=== PATIENT | female | born 1985 | race Caucasian/White ===

== ENCOUNTER 2016-12-17 00:31 | Inpatient (IN) | payer MEDICAID, OTHER ==
[~2016-12-17] VITALS: Ht 154.9 cm; Wt 83.0 kg
[2016-12-17] VITALS (13 sets, daily range): BP systolic 102–130; BP diastolic 73–90; PULSE 83–105; RESP 12–13; TEMP 97.6–99.5; O2SAT 100
[~2016-12-17 00:31] MED LIST: ACYC1CAP16 PO; IBUP800T23 PO; LORTA5 PO; PRENTAB72 PO; SENN1TAB11 PO; SYNT200T OR
[2016-12-17] MEDS ORDERED: ceFAZolin 2 GM PREMIX 50 ML ONE ×2 (00:34→02:29)
[2016-12-17] MEDS ORDERED: MIDAZOLAM HCL 5 MG/ML VIAL (1 ML) ONE ×2 (00:51→01:03)
[2016-12-17] MEDS ORDERED: MANNITOL INJ 50 ML ONE ×3 (00:54→02:42)
[2016-12-17 01:03] LABS: I-STAT POTASSIUM 3.5 MMOL/L (3.5-4.9)
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
[2016-12-17] MEDS ORDERED: IOHEXOL 350 MG/ML 10 ML VIAL (for RAD DIAG) IV ONE (01:21)
[2016-12-17] MEDS ORDERED: PROPOFOL 1000 MG/100 ML INJ 100 ML ONE ×2 (01:28→05:59)
[2016-12-17] MEDS ORDERED: fentaNYL DRIP 250 ML ONE (01:29)
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
[2016-12-17] MEDS ORDERED: Post-op Orders (for Pharmacy) MISC XX ONE (01:45)
[2016-12-17] MEDS ORDERED: NALOXONE HCL 0.4 MG/ML AMP IV PRN (01:45)
[2016-12-17] MEDS ORDERED: SODIUM CHLORIDE 0.9% FLUSH 10 ML FLUSH IV FLUSH PRN (01:45)
[2016-12-17 01:53] LABS: AUTOMATED NEUTROPHIL # 18.7 TH/MM3 (1.8-7.7); BASOPHIL # 0.2 TH/MM3 (0-0.2); EOSINOPHIL % 0.1 % (0.0-4.0); HEMATOCRIT 37.3 % (35.0-46.0); HEMO FLAGS DIFF FINAL; LYMPH % 3.8 % (9.0-44.0); LYMPHOCYTE # 0.8 TH/MM3 (1.0-4.8); MEAN CORPUSCULAR HEMOGLOBIN 27.2 PG (27.0-34.0); MEAN CORPUSCULAR HGB CONC 32.3 % (32.0-36.0); MONO % 2.7 % (0.0-8.0); NEUT % 92.4 % (16.0-70.0); PLATELET COUNT 130 TH/MM3 (150-450); RED BLOOD COUNT 4.44 MIL/MM3 (4.00-5.30); RED CELL DISTRIBUTION WIDTH 16.1 % (11.6-17.2); WHITE BLOOD COUNT 20.2 TH/MM3 (4.0-11.0)
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
[2016-12-17] MEDS: PANTOPRAZOLE SODIUM 40 MG VIAL IV SCH (02:00)
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
[2016-12-17 02:05] LABS: APTT (PATIENT) 30.5 SEC (24.3-30.1); INTERNATIONAL NORMALIZED RATIO 1.4 RATIO; PROTHROMBIN TIME - PATIENT 15.2 SEC (9.8-11.6)
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
[2016-12-17] MEDS ORDERED: HEPARIN SODIUM - IV 10,000 UNITS/10 ML VIAL ONE (02:29)
[2016-12-17] MEDS: GENTAMICIN SULFATE 80 MG/2 ML VIAL ONE (02:42)
[2016-12-17 03:27] LABS: HEMATOCRIT 42.1 % (35.0-46.0); MEAN CELL VOLUME 82.6 FL (80.0-100.0); MEAN CORPUSCULAR HEMOGLOBIN 27.4 PG (27.0-34.0); MEAN CORPUSCULAR HGB CONC 33.1 % (32.0-36.0); PLATELET COUNT 132 TH/MM3 (150-450); RED CELL DISTRIBUTION WIDTH 16.2 % (11.6-17.2); REVIEW FLAG FINAL; WHITE BLOOD COUNT 17.7 TH/MM3 (4.0-11.0)
[2016-12-17 03:33] LABS: BLOOD GAS BASE EXCESS -0.3 mmol/L (-2-2); BLOOD GAS CARBOXYHEMOGLOBIN 1.4 % (0-4); BLOOD GAS HCO3 25 mmol/L (22-26); BLOOD GAS METHEMOGLOBIN 1.2 % (0-2); BLOOD GAS O2 HGB SATURATION 73 % (90-100); BLOOD GAS OXYGEN CONTENT 15.4 Vol % (12.0-20.0); BLOOD GAS PCO2 48 mmHg (38-42); BLOOD GAS PO2 42 mmHg (61-120); TEMP CORR TO 98.6
[2016-12-17 03:36] LABS: CRITICAL VALUE YES; FIO2 100 %; STAT NO
[2016-12-17 03:38] LABS: APTT (PATIENT) 24.5 SEC (24.3-30.1); INTERNATIONAL NORMALIZED RATIO 1.1 RATIO
[2016-12-17 03:52] LABS: BICARBONATE 26.4 MEQ/L (21.0-32.0); POTASSIUM 3.3 MEQ/L (3.5-5.1)
[2016-12-17 04:14] LABS: CALCIUM-PROTEIN CORRECTED 7.9 MG/DL (8.5-10.1)
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
--- NOTE | 2016-12-17 05:22 | PD.OP ---
Operative Report Preoperative Diagnosis: (1) Open fracture of shaft of right humerus (2) Strain of triceps tendon Postoperative Diagnosis: (1) Open fracture of shaft of right humerus (2) Strain of triceps tendon Procedure: Right humerus open reduction and internal fixation Right humerus irrigation and debridement Exploration of ruptured radial nerve Repair triceps open rupture Placement of wound VAC Anesthesia: General Surgeon: Poli Quiñones MD Crankshaft Straightener(s): staff and Dr. Garza Operation and Findings: see dictation Poli Quiñones MD Dec 17, 2016 05:22
--- NOTE | 2016-12-17 05:48 | RADRPT ---
EXAM DATE/TIME: 12/17/2016 04:22 [facility] COMPARISON: No previous studies available for comparison. INDICATIONS : ORIF right distal humerus. MEDICAL HISTORY : Non-responsive SURGICAL HISTORY : Non-responsive ENCOUNTER: Subsequent ACUITY: 1 day PAIN SCORE: Non-responsive. LOCATION: Right distal humerus FINDINGS: Two view examination of the right humerus demonstrates placement of a fixation plate across a fractur e. Large soft tissue defect posteriorly remains. CONCLUSION: Status post fracture fixation with large remaining soft tissue defect. Lewis Saldana MD on December 17, 2016 at 5:46 Board Certified Radiologist. This report was verified electronically.
[2016-12-17] MEDS ORDERED: DO NOT ADM ANY ANTICOAGULANT DRUGS PRN (05:49)
[2016-12-17] MEDS: SODIUM CHLOR 0.9% 1000 ML INJ 1,000 ML IV SCH ×2 (06:00→20:46)
[2016-12-17] MEDS ORDERED: ceFAZolin 2 GM PREMIX 50 ML IV SCH (06:00)
[2016-12-17] MEDS ORDERED: fentaNYL CITRATE 250 MCG/5 ML AMP ONE (06:05)
[2016-12-17 06:29] LABS: BLOOD GAS BASE EXCESS -2.2 mmol/L (-2-2); BLOOD GAS CARBOXYHEMOGLOBIN 1.2 % (0-4); BLOOD GAS HCO3 22 mmol/L (22-26); BLOOD GAS O2 HGB SATURATION 97 % (90-100); BLOOD GAS OXYGEN CONTENT 18.2 Vol % (12.0-20.0); BLOOD GAS PCO2 39 mmHg (38-42); BLOOD GAS PO2 187 mmHg (61-120); BLOOD GAS TOTAL HGB 13.1 G/DL (12.0-16.0); CRITICAL VALUE NO; OXYGEN DEVICE VENTILATOR; TEMP CORR TO 98.6
[2016-12-17 06:30] LABS: DRAW SITE LT RADIAL; FIO2 50 %; NUMBER OF ARTERIAL PUNCTURES 1; STAT NO; ULNAR PULSE PRESENT
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
[2016-12-17] MEDS ORDERED: LEVO.1 PO (07:27)
[2016-12-17] MEDS ORDERED: POTASSIUM PHOSPHATE MONOBASIC 500 MG TAB PO PRN (07:45)
[2016-12-17] MEDS ORDERED: MAGNESIUM SULFATE INJ 2 GM in SODIUM CHLORIDE 0.9% INJ 96 ML IV PRN (07:45)
[2016-12-17] MEDS ORDERED: POTASSIUM CHLORIDE 25 MEQ EFFERVESCENT TAB PO PRN (07:45)
[2016-12-17] MEDS ORDERED: POTASSIUM PHOSPHATE INJ 30 MMOL in SODIUM CHLOR 0.9% 250 ML INJ 250 ML IV PRN (07:45)
[2016-12-17] MEDS ORDERED: POTASSIUM CHLOR 20 MEQ PREMIX 100 ML IV PRN ×2 (07:45)
[2016-12-17] MEDS ORDERED: SODIUM PHOSPHATE INJ 30 MMOL in SODIUM CHLOR 0.9% 250 ML INJ 240 ML IV PRN (07:45)
[2016-12-17] MEDS ORDERED: POTASSIUM PHOSPHATE MONOBASIC 500 MG TAB PO/TUBE PRN (07:45)
[2016-12-17] MEDS ORDERED: MAGNESIUM OXIDE 400 MG TAB PO PRN (07:45)
[2016-12-17] MEDS ORDERED: BISACODYL 10 MG SUPP RECTAL PRN (07:45)
[2016-12-17] MEDS ORDERED: MAGNESIUM SULFATE INJ 4 GM in SODIUM CHLORIDE 0.9% INJ 92 ML IV PRN (07:45)
[2016-12-17] MEDS ORDERED: POTASSIUM CHLOR 40 MEQ PREMIX 100 ML IV PRN (07:45)
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
[2016-12-17] MEDS: CLINDAMYCIN INJ 600 MG in SODIUM CHLORIDE 0.9% INJ 50 ML IV SCH ×2 (07:58→16:16)
[2016-12-17] MEDS: CHLORHEXIDINE 0.12% (ORAL KIT) 15 ML CUP MT SCH ×2 (08:00→20:00)
[2016-12-17] MEDS: fentaNYL 2,500 MCG/NS 250 ML IV SCH ×2 (08:15→16:16)
--- NOTE | 2016-12-17 08:15 | RADRPT ---
EXAM DATE/TIME: 12/17/2016 07:44 [facility] COMPARISON: CHEST SINGLE AP, December 17, 2016, 0:43. INDICATIONS : Trauma MEDICAL HISTORY : Unknown SURGICAL HISTORY : Unknown ENCOUNTER: Subsequent ACUITY: 1 day PAIN SCORE: Non-responsive. LOCATION: Bilateral chest FINDINGS: Endotracheal tube is noted and the tip terminates 1.2 cm above the jennifer. NG tube courses beneath th e diaphragm. The lungs are clear. Osseous structures are intact. Left subclavian introducer sheath ag ain seen. CONCLUSION: Clear lungs. Gigi Read MD on December 17, 2016 at 8:09 Board Certified Radiologist. This report was verified electronically.
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
[2016-12-17 08:51] LABS: MAGNESIUM 2.1 MG/DL (1.5-2.5)
[2016-12-17] MEDS: SODIUM CHLORIDE 0.9% FLUSH 10 ML FLUSH IV FLUSH SCH ×2 (09:00→20:47)
[2016-12-17] MEDS: DOCUSATE SODIUM 50 MG/SENNA 8.6 MG TAB PO SCH ×2 (09:00→20:47)
[2016-12-17] MEDS ORDERED: SODIUM CHLOR 0.9% 250 ML INJ 250 ML IV ONE (09:45)
[2016-12-17] MEDS ORDERED: SODIUM CHLOR 0.9% 1000 ML INJ 1,000 ML IV ONE (09:45)
[2016-12-17] MEDS: RESP: ALBUTEROL 2.5 MG/IPRATROPIUM 0.5 MG NEB (SCH) NEB ×3 (10:52→20:03)
[2016-12-17] MEDS: POTASSIUM CHLOR 40 MEQ PREMIX 100 ML IV PRN (11:38)
[2016-12-17] MEDS ORDERED: LACTATED RINGER'S 1000 ML INJ 3,000 ML IV ONE (12:00)
[2016-12-17] MEDS ORDERED: NORMOSOL R INJ 2,000 ML IV ONE (12:00)
[2016-12-17] MEDS: GENTAMICIN INJ 100 MG in SODIUM CHLORIDE 0.9% INJ 100 ML IV SCH ×2 (12:10→18:48)
[2016-12-17] MEDS: ceFAZolin 2 GM PREMIX 50 ML IV SCH ×2 (12:10→18:46)
[2016-12-17] MEDS: PROPOFOL 1000 MG/100 ML INJ 100 ML IV SCH ×3 (12:30→20:46)
[2016-12-17] MEDS: LACTULOSE SYRUP 20 GM/30 ML CUP PO SCH (16:42)
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
[2016-12-18] VITALS (18 sets, daily range): BP systolic 91–103; BP diastolic 47–58; PULSE 57–85; RESP 12–16; TEMP 94.1–99.5; O2SAT 100
[2016-12-18] MEDS: PANTOPRAZOLE SODIUM 40 MG VIAL IV SCH (00:06)
[2016-12-18] MEDS: CLINDAMYCIN INJ 600 MG in SODIUM CHLORIDE 0.9% INJ 50 ML IV SCH (00:06)
[2016-12-18] MEDS: PROPOFOL 1000 MG/100 ML INJ 100 ML IV SCH ×4 (01:26→17:43)
[2016-12-18] MEDS: GENTAMICIN INJ 100 MG in SODIUM CHLORIDE 0.9% INJ 100 ML IV SCH ×3 (01:58→17:43)
[2016-12-18] MEDS: ceFAZolin 2 GM PREMIX 50 ML IV SCH ×4 (01:59→17:43)
[2016-12-18] MEDS ORDERED: LACTATED RINGER'S 1000 ML INJ 1,000 ML IV ONE ×2 (02:00→16:00)
[2016-12-18] MEDS: RESP: ALBUTEROL 2.5 MG/IPRATROPIUM 0.5 MG NEB (SCH) NEB ×5 (03:33→20:10)
[2016-12-18] MEDS: fentaNYL 2,500 MCG/NS 250 ML IV SCH ×2 (03:51→17:43)
[2016-12-18 04:56] LABS: AUTOMATED NEUTROPHIL # 9.8 TH/MM3 (1.8-7.7); BASOPHIL # 0.1 TH/MM3 (0-0.2); BASOPHIL % 0.4 % (0.0-2.0); EOSINOPHIL # 0.1 TH/MM3 (0-0.4); EOSINOPHIL % 0.6 % (0.0-4.0); HEMATOCRIT 29.2 % (35.0-46.0); HEMO FLAGS DIFF FINAL; LYMPH % 12.8 % (9.0-44.0); LYMPHOCYTE # 1.6 TH/MM3 (1.0-4.8); MEAN CELL VOLUME 83.3 FL (80.0-100.0); MEAN CORPUSCULAR HGB CONC 33.6 % (32.0-36.0); MONO % 5.6 % (0.0-8.0); NEUT % 80.6 % (16.0-70.0); PLATELET COUNT 102 TH/MM3 (150-450); RED BLOOD COUNT 3.51 MIL/MM3 (4.00-5.30); RED CELL DISTRIBUTION WIDTH 16.9 % (11.6-17.2); WHITE BLOOD COUNT 12.1 TH/MM3 (4.0-11.0)
[2016-12-18 05:29] LABS: BLOOD GAS BASE EXCESS -2.1 mmol/L (-2-2); BLOOD GAS CARBOXYHEMOGLOBIN 0.9 % (0-4); BLOOD GAS HCO3 23 mmol/L (22-26); BLOOD GAS METHEMOGLOBIN 1.1 % (0-2); BLOOD GAS O2 HGB SATURATION 97 % (90-100); BLOOD GAS OXYGEN CONTENT 13.1 Vol % (12.0-20.0); BLOOD GAS PCO2 47 mmHg (38-42); BLOOD GAS PO2 169 mmHg (61-120); BLOOD GAS TOTAL HGB 9.3 G/DL (12.0-16.0); CRITICAL VALUE NO; OXYGEN DEVICE VENT; TEMP CORR TO 98.6
[2016-12-18 05:30] LABS: DRAW SITE LT BRACHIAL; FIO2 40 %; NUMBER OF ARTERIAL PUNCTURES 1; STAT NO; ULNAR PULSE PRESENT; VENT SETTINGS SEE COMMENTS
[2016-12-18 06:30] LABS: BICARBONATE 22.2 MEQ/L (21.0-32.0); POTASSIUM 4.5 MEQ/L (3.5-5.1); TOTAL BILIRUBIN ADULT 0.4 MG/DL (0.2-1.0)
[2016-12-18] MEDS: SODIUM CHLOR 0.9% 1000 ML INJ 1,000 ML IV SCH ×2 (06:30→17:44)
[2016-12-18 06:32] LABS: CALCIUM-PROTEIN CORRECTED 7.4 MG/DL (8.5-10.1)
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
[2016-12-18] MEDS: DOCUSATE SODIUM 50 MG/SENNA 8.6 MG TAB PO SCH ×2 (08:08→21:31)
[2016-12-18] MEDS: LACTULOSE SYRUP 20 GM/30 ML CUP PO SCH (08:08)
[2016-12-18] MEDS: SODIUM CHLORIDE 0.9% FLUSH 10 ML FLUSH IV FLUSH SCH ×2 (08:08→21:31)
[2016-12-18] MEDS: CHLORHEXIDINE 0.12% (ORAL KIT) 15 ML CUP MT SCH ×2 (08:30→21:31)
[2016-12-18] MEDS ORDERED: VANCOMYCIN HCL 1000 MG VIAL ONE (08:34)
[2016-12-18] MEDS: GENTAMICIN SULFATE 80 MG/2 ML VIAL ONE ×3 (08:34→10:11)
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
[2016-12-18] MEDS ORDERED: CALCIUM GLUCONATE INJ 2 GM in SODIUM CHLORIDE 0.9% INJ 100 ML IV ONE (09:00)
[2016-12-18] MEDS ORDERED: BUPIVACAINE/EPINEPHRINE 0.5% PF 10 ML VIAL ONE (09:01)
[2016-12-18] MEDS ORDERED: GENTAMICIN SULFATE 80 MG/2 ML VIAL ONE (09:24)
[2016-12-18] MEDS ORDERED: PROPOFOL 500 MG/50 ML INJ 50 ML ONE ×2 (10:29→12:16)
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
[2016-12-18] MEDS ORDERED: Post-op Orders (for Pharmacy) MISC XX ONE (12:00)
--- NOTE | 2016-12-18 12:01 | PD.OP ---
cc: Clay Mandujano MD Operative Report Date of Surgery: Dec 18, 2016 Preoperative Diagnosis: Displaced right radius and ulna shaft fractures, displaced left distal tibia fracture with syndesmosis disruption, left foot lacerations Postoperative Diagnosis: Procedure: Open reduction internal fixation right radius and ulna shaft fractures, open reduction internal fixation left distal tibia, open reduction total fixation left ankle syndesmosis, irrigation and debridement with complex wound closure left foot 20 cm in length Surgeon: Clay Mandujano Market Research Assistant(s): DIONICIO Correa PA-C The surgical procedure was assisted by my physician diversional therapist's assistant. My P.A. presence was necessary throughout this case for the manipulation and positioning of the surgical extremity. My P.A. was assisting me throughout the duration of this procedure. The skill set of a physician diversional therapist's assistant was medically necessary to complete this procedure. During the surgical case the surgical services asst was working at the back table and the physician diversional therapist's assistant was directly assisting me. Operation and Findings: Patient was seen and examined preoperatively. Patient was found to have displaced right radius and ulna shaft fractures and left distal tibia fracture. She also had open right humerus fracture previously treated by Dr. Quiñones with open reduction internal fixation. Preoperatively patient was intubated and sedated intensive care unit. Informed consent was obtained from patient's mother and operative site was marked. Patient was brought to operating room and given IV sedation and general anesthesia. Timeout procedure was performed. The right arm and left leg were prepped and draped with alcohol followed by Hibiclens and draped in usual sterile fashion. IV antibiotics were administered prior to incision. Procedure began with a 5 inch incision over the subcutaneous border of the ulna. Fascia was elevated off of the bone. Fracture site was visualized. Fracture tenaculums were used to reduce fracture. Fracture keyed into anatomic alignment. 2 Synthes 2.7 cortical lag screws were used to compress fracture. Good compression was obtained. A Synthes plate was placed across the fracture. Plate was provisionally held to bone with K wires. 3.5 cortical screws were used to compress plate to bone. Multiple screws were placed in each side of fracture. K wires were removed. Fluoroscopy confirmed excellent alignment of fracture with well-placed hardware. Incision was now closed with # 1 Vicryl, 3-0 Vicryl, and ashleigh. Next attention was turned to the radius. A 5 inch incision was made over the volar aspect of the forearm. A standard volar approach was utilized. The interval between the radial artery and superficial radial nerve was identified. Neurovascular structures were protected. Soft tissue was elevated off the bone. Fracture site was visualized. Fracture fragments were carefully reduced. Each fracture fragment keyed in anatomic alignment. K wires were used to hold provisional fixation. A Synthes plate was contoured to fit the radius. Plate was provisionally held with K wires. 3.5 cortical screws were used to compress plate to bone. Multiple screws were placed in each side of fracture. K wires were removed. Final fluoroscopy revealed excellent of fracture with well-placed hardware. Sterile dressings were applied with Xeroform 4 x 4 soft roll and Pierre wrap. Forearm compartments were soft and compressible. Attention was turned towards the distal tibia. A 6-inch incision was made over the anterior lateral ankle. The subcutaneous tissue was dissected with Bovie. The anterior aspect of the fibula and tibia were exposed. The fracture site was visualized. The fracture site was cleaned with curets. There was some comminution around the articular surface. The fractures were now reduced. The fractures keyed into anatomic alignment. K-wires were used to hold provisional fixation. A Synthes 2.4 plate was selected. The plate was provisionally held to bone with K-wires. 2.4 cortical screws were used to compress the plate to bone. Multiple cortical screws were placed above and below the fracture. An additional Arthrex bioabsorbable 1.5 mm pin was placed through the articular surface fragments for additional stability. Next, attention was turned to the syndesmosis. The syndesmosis was stressed. There was widening of the syndesmosis with external rotation of the ankle. The syndesmosis was now held in a reduced position with the ankle in neutral position. Two Synthes 4.0 cortical screws were now placed through the fibula plate into the tibia. Fluoroscopy confirmed appropriate screw placement with well-aligned syndesmosis. Incisions were thoroughly irrigated. The subcutaneous tissue was closed with 3-0 PDS and the skin was closed with 3-0 nylon. Next attention was turned to the left foot. There were 2 traumatic lacerations. One laceration extended into the webspace between the fourth and fifth toes. The laceration extended around the medial heel pads. These lacerations were thoroughly irrigated. Skin subcutaneous tissue and fascia were sharply debrided. Overall the wound relatively clean. Next attention was turned to closure. These lacerations were complex and difficult to close. Subcutaneous tissues reapproximated with 3-0 PDS. Skin was closed with 3-0 nylon. A comminution retention suture and vertical mattress suture were utilized. The incisions were completely closed. Sterile dressings were applied and a well-padded short-leg splint was applied. Patient was transferred back to intensive care intubated. Clay Mandujano MD Dec 18, 2016 12:01
[2016-12-18] MEDS ORDERED: BACITRACIN TOP OINT 15 GM TUBE ONE (12:26)
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
--- NOTE | 2016-12-18 13:17 | RADRPT ---
EXAM DATE/TIME: 12/18/2016 10:51 [facility] COMPARISON: FOREARM RIGHT (2VWS), December 17, 2016, 1:40. INDICATIONS : ORIF right forearm. MEDICAL HISTORY : None. SURGICAL HISTORY : None. ENCOUNTER: Subsequent ACUITY: 2 days PAIN SCORE: Non-responsive. LOCATION: Right forearm. FINDINGS: Plate with screws is seen bridging the fracture of the distal radius and ulna. Alignment is anatomic . CONCLUSION: Anatomic alignment. Doug Snyder MD FACR on December 18, 2016 at 13:11 Board Certified Radiologist. This report was verified electronically.
--- NOTE | 2016-12-18 13:20 | RADRPT ---
EXAM DATE/TIME: 12/18/2016 10:51 [facility] COMPARISON: No previous studies available for comparison. INDICATIONS : ORIF left ankle. MEDICAL HISTORY : None. SURGICAL HISTORY : None. ENCOUNTER: Subsequent ACUITY: 2 days PAIN SCORE: Non-responsive. LOCATION: Left ankle. FINDINGS: Plate with screws is seen bridging the fracture of the distal tibia and fibula about the ankle. Alig nment is anatomic. CONCLUSION: Anatomic alignment. Doug Snyder MD FACR on December 18, 2016 at 13:11 Board Certified Radiologist. This report was verified electronically.
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
--- NOTE | 2016-12-18 15:06 | PD.OP ---
Operative Report open wound left shoulder Postoperative Diagnosis: same Procedure: Debridement open wound left shoulder Anesthesia: fentanyl/propofol Surgeon: Hansa Bhardwaj Tooth Cutter Clutch(s): none Operation and Findings: Left shoulder open wound 6x6cm in size.Washout with NS performed.Devitalized tissue circumferentially sharply debrided.Wound VAC applied to 100mmHg pressure.Procedure performed at the bedside in the ICU. Hansa Bhardwaj MD Dec 18, 2016 15:06
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
[2016-12-18 15:39] LABS: AUTOMATED NEUTROPHIL # 6.5 TH/MM3 (1.8-7.7); BASOPHIL % 0.4 % (0.0-2.0); EOSINOPHIL % 0.6 % (0.0-4.0); HEMATOCRIT 22.6 % (35.0-46.0); LYMPH % 12.6 % (9.0-44.0); MEAN CELL VOLUME 83.5 FL (80.0-100.0); MEAN CORPUSCULAR HEMOGLOBIN 28.5 PG (27.0-34.0); MEAN CORPUSCULAR HGB CONC 34.1 % (32.0-36.0); MONO % 4.3 % (0.0-8.0); NEUT % 82.1 % (16.0-70.0); PLATELET COUNT 90 TH/MM3 (150-450); RED BLOOD COUNT 2.71 MIL/MM3 (4.00-5.30); RED CELL DISTRIBUTION WIDTH 16.6 % (11.6-17.2)
[2016-12-18 15:58] LABS: HEMO FLAGS AUTO DIFF
[2016-12-18 16:15] LABS: BICARBONATE 26.4 MEQ/L (21.0-32.0); POTASSIUM 4.2 MEQ/L (3.5-5.1)
[2016-12-18 16:46] LABS: BANDS 18 % (0-6); METAMYELOCYTES 2 % (0-1); NEUTROPHIL # MANUAL DIFF 7.5 TH/MM3 (1.8-7.7); POLYS (SEG NEUTROPHILS) 74 % (16-70); WBC DIFF SAMPLE 100
[2016-12-18 16:48] LABS: OVALOCYTES 1+ (NORMAL); PLATELET ESTIMATE SMEAR LOW (NORMAL); PLATELET MORPHOLOGY NORMAL (NORMAL); SCAN/DIFF FINAL DIFF MANUAL
[2016-12-18] MEDS: POVIDONE IODINE 10% OINT 30 GM TUBE TOPICAL SCH (21:00)
[2016-12-18] MEDS: BACITRACIN TOP OINT 15 GM TUBE TOPICAL SCH ×2 (21:00→21:32)
[2016-12-18] MEDS: ENOXAPARIN SODIUM 30 MG/0.3 ML SYRINGE SQ SCH (21:31)
[2016-12-19] VITALS (18 sets, daily range): BP systolic 96–130; BP diastolic 60–77; PULSE 65–109; RESP 10–17; TEMP 99.3–100; O2SAT 100
[2016-12-19] MEDS: ceFAZolin 2 GM PREMIX 50 ML IV SCH ×3 (01:42→18:14)
[2016-12-19] MEDS: PROPOFOL 1000 MG/100 ML INJ 100 ML IV SCH ×2 (01:45→09:41)
[2016-12-19] MEDS: PANTOPRAZOLE SODIUM 40 MG VIAL IV SCH (01:45)
[2016-12-19] MEDS: GENTAMICIN INJ 100 MG in SODIUM CHLORIDE 0.9% INJ 100 ML IV SCH ×3 (03:19→18:14)
[2016-12-19] MEDS: SODIUM CHLOR 0.9% 1000 ML INJ 1,000 ML IV SCH ×3 (03:19→22:37)
[2016-12-19] MEDS: RESP: ALBUTEROL 2.5 MG/IPRATROPIUM 0.5 MG NEB (SCH) NEB ×4 (03:34→21:14)
[2016-12-19 03:42] LABS: AUTOMATED NEUTROPHIL # 9.8 TH/MM3 (1.8-7.7); BASOPHIL # 0.1 TH/MM3 (0-0.2); BASOPHIL % 0.7 % (0.0-2.0); EOSINOPHIL # 0.2 TH/MM3 (0-0.4); EOSINOPHIL % 1.4 % (0.0-4.0); HEMATOCRIT 27.4 % (35.0-46.0); HEMO FLAGS DIFF FINAL; LYMPH % 8.6 % (9.0-44.0); MEAN CELL VOLUME 82.2 FL (80.0-100.0); MEAN CORPUSCULAR HEMOGLOBIN 28.1 PG (27.0-34.0); MEAN CORPUSCULAR HGB CONC 34.1 % (32.0-36.0); MONO % 2.9 % (0.0-8.0); NEUT % 86.4 % (16.0-70.0); PLATELET COUNT 113 TH/MM3 (150-450); RED BLOOD COUNT 3.33 MIL/MM3 (4.00-5.30); RED CELL DISTRIBUTION WIDTH 15.6 % (11.6-17.2); WHITE BLOOD COUNT 11.4 TH/MM3 (4.0-11.0)
[2016-12-19 04:30] LABS: BICARBONATE 25.8 MEQ/L (21.0-32.0); CALCIUM-PROTEIN CORRECTED 8.3 MG/DL (8.5-10.1); POTASSIUM 3.3 MEQ/L (3.5-5.1); TOTAL BILIRUBIN ADULT 0.5 MG/DL (0.2-1.0)
[2016-12-19] MEDS: POTASSIUM CHLOR 40 MEQ PREMIX 100 ML IV PRN (04:51)
[2016-12-19 05:45] LABS: BLOOD GAS BASE EXCESS -0.6 mmol/L (-2-2); BLOOD GAS HCO3 24 mmol/L (22-26); BLOOD GAS O2 HGB SATURATION 98 % (90-100); BLOOD GAS OXYGEN CONTENT 18.2 Vol % (12.0-20.0); BLOOD GAS PCO2 39 mmHg (38-42); BLOOD GAS PO2 201 mmHg (61-120); TEMP CORR TO 98.6
[2016-12-19 05:46] LABS: CRITICAL VALUE NO; OXYGEN DEVICE VENT; VENT SETTINGS SEE COMMENTS
[2016-12-19 05:47] LABS: DRAW SITE ART LINE; FIO2 40 %; STAT NO; ULNAR PULSE PRESENT
[2016-12-19] MEDS: BACITRACIN TOP OINT 15 GM TUBE TOPICAL SCH ×4 (09:00→21:00)
[2016-12-19] MEDS: POVIDONE IODINE 10% OINT 30 GM TUBE TOPICAL SCH ×2 (09:00→19:56)
[2016-12-19] MEDS: fentaNYL 2,500 MCG/NS 250 ML IV SCH (09:41)
[2016-12-19] MEDS: ENOXAPARIN SODIUM 30 MG/0.3 ML SYRINGE SQ SCH ×2 (09:41→21:00)
[2016-12-19] MEDS: LACTULOSE SYRUP 20 GM/30 ML CUP PO SCH (09:41)
[2016-12-19] MEDS: DOCUSATE SODIUM 50 MG/SENNA 8.6 MG TAB PO SCH ×2 (10:01→21:00)
[2016-12-19] MEDS: SODIUM CHLORIDE 0.9% FLUSH 10 ML FLUSH IV FLUSH SCH ×2 (10:01→21:00)
[2016-12-19] MEDS: CHLORHEXIDINE 0.12% (ORAL KIT) 15 ML CUP MT SCH ×2 (10:01→19:55)
[2016-12-19] MEDS: KETOROLAC TROMETHAMINE 30 MG/ML (IVP) VIAL IV PUSH SCH ×2 (11:56→18:14)
[2016-12-19] MEDS ORDERED: ENOXAPARIN SODIUM 40 MG/0.4 ML SYRINGE SQ SCH (12:00)
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
[2016-12-19] MEDS: MORPHINE SULFATE 4 MG/ML INJ IV PUSH PRN ×2 (15:40→22:37)
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
--- NOTE | 2016-12-19 23:47 | PD.ORT.PN ---
Subjective Subjective Remarks Patient extubated. Alert and oriented. Follows commands. Mother at bedside. Objective Vitals Vital Signs Date Time Temp Pulse Resp B/P Pulse Ox O2 Delivery O2 Flow Rate FiO2 12/19/16 22:00 86 12/19/16 21:22 100 Nasal Cannula 2.00 12/19/16 20:00 91 12/19/16 20:00 99.9 98 17 130/77 100 12/19/16 19:00 100 Nasal Cannula 2.00 12/19/16 18:00 103 12/19/16 16:00 102 12/19/16 16:00 100.0 102 13 121/68 100 12/19/16 15:00 100 Nasal Cannula 2.00 12/19/16 15:00 100 Nasal Cannula 3 12/19/16 14:00 109 12/19/16 12:00 40 12/19/16 12:00 100.0 103 10 96/65 100 12/19/16 12:00 103 12/19/16 11:46 100 40 12/19/16 10:40 40 12/19/16 10:40 40 12/19/16 10:00 103 12/19/16 08:50 100 40 12/19/16 08:00 40 12/19/16 08:00 70 12/19/16 08:00 99.3 70 16 124/62 100 12/19/16 07:00 100 Mechanical Ventilator 40 12/19/16 06:00 69 12/19/16 04:00 99.5 72 16 127/60 100 12/19/16 04:00 40 12/19/16 04:00 72 12/19/16 03:35 100 40 12/19/16 02:00 70 12/19/16 01:15 100 40 12/19/16 00:00 68 12/19/16 00:00 99.5 65 16 130/65 100 12/19/16 00:00 40 I/O 12/18/16 12/18/16 12/18/16 12/19/16 12/19/16 12/19/16 07:00 15:00 23:00 07:00 15:00 23:00 Intake Total 2720 ml 2409 ml 1537 ml 924 ml 1141 ml Output Total 500 ml 1400 ml 950 ml 1200 ml 2175 ml Balance 2220 ml 1009 ml 587 ml -276 ml -1034 ml Intake IV Total 2720 ml 2379 ml 1287 ml 823 ml 928 ml Tube Feeding 101 ml 153 ml Packed Cells 250 ml Other 30 ml 60 ml Output Urine Total 400 ml 1400 ml 950 ml 1200 ml 2150 ml Gastric Drainage Total 0 ml 0 ml 0 ml Drainage Total 100 ml 0 ml 0 ml 0 ml 25 ml # Bowel Movements 0 0 0 0 0 Result Diagram: 12/19/16 0321 12/19/16 0321 Imaging Last 24 hours Impressions Thoracic Spine CT 12/17/1652 Signed Impressions: Service Date/Time: Saturday, December 17, 2016 01:15 - CONCLUSION: Normal examination except for question of a hairline fracture of the right 11th rib. Lewis Saldana MD Pelvis X-Ray 12/17/1652 Signed Impressions: Service Date/Time: Saturday, December 17, 2016 00:43 - CONCLUSION: Unremarkable examination of the pelvis. Lewis Saldana MD Maxillofacial CT 12/17/1652 Signed Impressions: Service Date/Time: Saturday, December 17, 2016 01:04 - CONCLUSION: Soft tissue injury and debris in the left periorbital and frontal regions. No evidence of underlying fracture Lewis Saldana MD Lumbar Spine CT 12/17/1652 Signed Impressions: Service Date/Time: Saturday, December 17, 2016 01:15 - CONCLUSION: Normal examination. Lewis Saldana MD Head CT 12/17/1652 Signed Impressions: Service Date/Time: Saturday, December 17, 2016 01:04 - CONCLUSION: Intracranial exam is normal. Extensive soft tissue swelling and number of loose bodies in the subcutaneous fat. Lewis Saldana MD Chest X-Ray 12/17/1652 Signed Impressions: Service Date/Time: Saturday, December 17, 2016 00:43 - CONCLUSION: Normal examination except the patient is intubated with the tip in the endotracheal tube in the upper right bronchus. Left subclavian introducer sheath in good position Lewis Saldana MD Chest CT 12/17/1652 Signed Impressions: Service Date/Time: Saturday, December 17, 2016 01:15 - CONCLUSION: No definite evidence of infiltrate or pneumothorax. There is a small pneumomediastinum. ET tube is now in good position. Lewis Saldana MD Cervical Spine CT 12/17/1652 Signed Impressions: Service Date/Time: Saturday, December 17, 2016 01:04 - CONCLUSION: Normal examination. Lewis Saldana MD Abdomen/Pelvis CT 12/17/1652 Signed Impressions: Service Date/Time: Saturday, December 17, 2016 01:15 - CONCLUSION: 2 small hemangioma in the liver. Solid organs are otherwise unremarkable except for a right 11th rib fracture nondisplaced. Lewis Saldana MD Radius/Ulna X-Ray 12/17/16 Signed Impressions: Service Date/Time: Saturday, December 17, 2016 01:40 - CONCLUSION: Fracture of the midshaft of the humerus and mid shaft of the radius and ulna. Lewis Saldana MD Humerus X-Ray 12/17/16 Signed Impressions: Service Date/Time: Saturday, December 17, 2016 04:22 - CONCLUSION: Status post fracture fixation with large remaining soft tissue defect. Lewis Saldana MD Humerus X-Ray 12/17/16 Signed Impressions: Service Date/Time: Saturday, December 17, 2016 00:43 - CONCLUSION: Transverse humeral shaft fracture Lewis Saldana MD Foot X-Ray 12/17/16 Signed Impressions: Service Date/Time: Saturday, December 17, 2016 01:40 - CONCLUSION: Fractures of the first and fourth metatarsal necks Lewis Saldana MD Chest X-Ray 12/17/16 Signed Impressions: Service Date/Time: Saturday, December 17, 2016 07:44 - CONCLUSION: Clear lungs. Gigi Read MD Chest X-Ray 12/17/16 Signed Impressions: Service Date/Time: Saturday, December 17, 2016 00:43 - CONCLUSION: Normal examination except for the endotracheal tube is extending into the right bronchus. Lewis Saldana MD Ankle X-Ray 12/17/16 Signed Impressions: Service Date/Time: Saturday, December 17, 2016 01:40 - CONCLUSION: Parasagittal fracture through the distal lateral tibial plafond with widening of the medial mortise. Lewis Saldana MD Objective Remarks RUE: splint in place dino wrap and dressing intact minimal movements with digits + numbness/tingling wound vac in place LLE: splint in place dino wrap and dressing intact good movement and sensation to toes Assessment & Plan Problem List: (1) Open fracture of shaft of right humerus (2) Strain of triceps tendon (3) Fracture of ankle, left, closed (4) Closed fracture of shaft of right radius and ulna Assessment and Plan POD 1 1) Open reduction internal fixation right radius and ulna shaft fractures, open reduction internal fixation of left distal tibia, open reduction total fixation left ankle syndesmosis, irrigation and debridement with complex wound closure left foot 20 cm in length. POD 2 1) Right humerus open reduction internal fixation using [employer] specialty distal humerus locking plate. 2) Primary repair of right triceps rupture. 3) Irrigation and debridement open fracture with curetting of bone and removal of small bone fragments. 4) Exploration of rupture radial nerve. 5) Placement of vaccum-assisted closure device. Pain management DVT prophylaxis - Lovenox Physical therapy - non weight bearing on right arm and left leg Do not change dressings Wound vac settings: intermittent 10 min on, 2 min off. Pressure -125 mm/Hg Monitor Leonel Snyder Dec 19, 2016 23:47
[2016-12-20] VITALS (14 sets, daily range): BP systolic 108–131; BP diastolic 58–65; PULSE 66–98; RESP 10–20; TEMP 98.8–100; O2SAT 95–100
[2016-12-20] MEDS: KETOROLAC TROMETHAMINE 30 MG/ML (IVP) VIAL IV PUSH SCH ×5 (00:28→23:53)
[2016-12-20] MEDS: PANTOPRAZOLE SODIUM 40 MG VIAL IV SCH (02:28)
[2016-12-20] MEDS: ceFAZolin 2 GM PREMIX 50 ML IV SCH ×3 (02:28→17:04)
[2016-12-20] MEDS: GENTAMICIN INJ 100 MG in SODIUM CHLORIDE 0.9% INJ 100 ML IV SCH ×3 (02:28→18:28)
[2016-12-20] MEDS: RESP: ALBUTEROL 2.5 MG/IPRATROPIUM 0.5 MG NEB (SCH) NEB ×4 (03:09→19:48)
[2016-12-20 04:15] LABS: AUTOMATED NEUTROPHIL # 7.2 TH/MM3 (1.8-7.7); BASOPHIL # 0.1 TH/MM3 (0-0.2); BASOPHIL % 0.9 % (0.0-2.0); EOSINOPHIL # 0.1 TH/MM3 (0-0.4); EOSINOPHIL % 1.4 % (0.0-4.0); HEMATOCRIT 26.6 % (35.0-46.0); HEMO FLAGS DIFF FINAL; LYMPH % 9.6 % (9.0-44.0); LYMPHOCYTE # 0.8 TH/MM3 (1.0-4.8); MEAN CORPUSCULAR HEMOGLOBIN 28.1 PG (27.0-34.0); MEAN CORPUSCULAR HGB CONC 33.9 % (32.0-36.0); MONO % 2.8 % (0.0-8.0); NEUT % 85.3 % (16.0-70.0); PLATELET COUNT 120 TH/MM3 (150-450); RED BLOOD COUNT 3.21 MIL/MM3 (4.00-5.30); RED CELL DISTRIBUTION WIDTH 15.8 % (11.6-17.2); WHITE BLOOD COUNT 8.4 TH/MM3 (4.0-11.0)
[2016-12-20 04:41] LABS: ANION GAP 8 MEQ/L (5-15); AST (GOT) 56 U/L (15-37); BICARBONATE 25.6 MEQ/L (21.0-32.0); BLOOD UREA NITROGEN 3 MG/DL (7-18); CHLORIDE 105 MEQ/L (98-107); GLOMERULAR FILTRATION RATE 93 ML/MIN (>89); POTASSIUM 3.3 MEQ/L (3.5-5.1); SODIUM (NA) 139 MEQ/L (136-145)
[2016-12-20 04:42] LABS: ALT (GPT) 25 U/L (10-53)
[2016-12-20 04:44] LABS: ALKALINE PHOSPHATASE 109 U/L (45-117); TOTAL BILIRUBIN ADULT 0.7 MG/DL (0.2-1.0)
[2016-12-20] MEDS: LEVOTHYROXINE SODIUM 100 MCG VIAL IV PUSH SCH ×2 (05:57→08:10)
[2016-12-20] MEDS: POTASSIUM CHLOR 40 MEQ PREMIX 100 ML IV PRN (05:59)
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
--- NOTE | 2016-12-20 07:26 | PD.ORT.PN ---
Subjective Subjective Remarks s/p ORIF right BBFA - POD 2 s/p ORIF Left Ankle - POD 2 s/p ORIF Right Distal Humerus - POD 3 s/p right arm radial nerve lesion -extubated. doing well. resting comfortably. no complaints Objective Vitals Vital Signs Date Time Temp Pulse Resp B/P Pulse Ox O2 Delivery O2 Flow Rate FiO2 12/20/16 06:00 78 12/20/16 04:00 99.5 86 10 108/65 100 12/20/16 04:00 86 12/20/16 02:00 72 12/20/16 00:00 79 12/20/16 00:00 100.0 79 14 131/60 95 12/19/16 22:00 86 12/19/16 21:22 100 Nasal Cannula 2.00 12/19/16 20:00 91 12/19/16 20:00 99.9 98 17 130/77 100 12/19/16 19:00 100 Nasal Cannula 2.00 12/19/16 18:00 103 12/19/16 16:00 102 12/19/16 16:00 100.0 102 13 121/68 100 12/19/16 15:00 100 Nasal Cannula 2.00 12/19/16 15:00 100 Nasal Cannula 3 12/19/16 14:00 109 12/19/16 12:00 40 12/19/16 12:00 100.0 103 10 96/65 100 12/19/16 12:00 103 12/19/16 11:46 100 40 12/19/16 10:40 40 12/19/16 10:40 40 12/19/16 10:00 103 12/19/16 08:50 100 40 12/19/16 08:00 40 12/19/16 08:00 70 12/19/16 08:00 99.3 70 16 124/62 100 I/O 12/19/16 12/19/16 12/19/16 12/20/16 12/20/16 12/20/16 07:00 15:00 23:00 07:00 15:00 23:00 Intake Total 924 ml 1141 ml 1202 ml 1194 ml Output Total 1200 ml 2175 ml 1900 ml 2100 ml Balance -276 ml -1034 ml -698 ml -906 ml Intake Oral 300 ml 360 ml IV Total 823 ml 928 ml 902 ml 834 ml Tube Feeding 101 ml 153 ml Other 60 ml Output Urine Total 1200 ml 2150 ml 1900 ml 2100 ml Drainage Total 0 ml 25 ml 0 ml 0 ml # Bowel Movements 0 0 0 0 Result Diagram: 12/20/1640012/20/16400 Imaging Last 24 hours Impressions Thoracic Spine CT 12/17/1652 Signed Impressions: Service Date/Time: Saturday, December 17, 2016 01:15 - CONCLUSION: Normal examination except for question of a hairline fracture of the right 11th rib. Lewis Saldana MD Pelvis X-Ray 12/17/1652 Signed Impressions: Service Date/Time: Saturday, December 17, 2016 00:43 - CONCLUSION: Unremarkable examination of the pelvis. Lewis Saldana MD Maxillofacial CT 12/17/1652 Signed Impressions: Service Date/Time: Saturday, December 17, 2016 01:04 - CONCLUSION: Soft tissue injury and debris in the left periorbital and frontal regions. No evidence of underlying fracture Lewis Saldana MD Lumbar Spine CT 12/17/1652 Signed Impressions: Service Date/Time: Saturday, December 17, 2016 01:15 - CONCLUSION: Normal examination. Lewis Saldana MD Head CT 12/17/1652 Signed Impressions: Service Date/Time: Saturday, December 17, 2016 01:04 - CONCLUSION: Intracranial exam is normal. Extensive soft tissue swelling and number of loose bodies in the subcutaneous fat. Lewis Saldana MD Chest X-Ray 12/17/1652 Signed Impressions: Service Date/Time: Saturday, December 17, 2016 00:43 - CONCLUSION: Normal examination except the patient is intubated with the tip in the endotracheal tube in the upper right bronchus. Left subclavian introducer sheath in good position Lewis Saldana MD Chest CT 12/17/1652 Signed Impressions: Service Date/Time: Saturday, December 17, 2016 01:15 - CONCLUSION: No definite evidence of infiltrate or pneumothorax. There is a small pneumomediastinum. ET tube is now in good position. Lewis Saldana MD Cervical Spine CT 12/17/1652 Signed Impressions: Service Date/Time: Saturday, December 17, 2016 01:04 - CONCLUSION: Normal examination. Lewis Saldana MD Abdomen/Pelvis CT 12/17/16 0053 Signed Impressions: Service Date/Time: Saturday, December 17, 2016 01:15 - CONCLUSION: 2 small hemangioma in the liver. Solid organs are otherwise unremarkable except for a right 11th rib fracture nondisplaced. Lewis Saldana MD Radius/Ulna X-Ray 12/17/16 0000 Signed Impressions: Service Date/Time: Saturday, December 17, 2016 01:40 - CONCLUSION: Fracture of the midshaft of the humerus and mid shaft of the radius and ulna. Lewis Saldana MD Humerus X-Ray 12/17/16 0000 Signed Impressions: Service Date/Time: Saturday, December 17, 2016 04:22 - CONCLUSION: Status post fracture fixation with large remaining soft tissue defect. Lewis Saldana MD Humerus X-Ray 12/17/16 0000 Signed Impressions: Service Date/Time: Saturday, December 17, 2016 00:43 - CONCLUSION: Transverse humeral shaft fracture Lewis Saldana MD Foot X-Ray 12/17/16 0000 Signed Impressions: Service Date/Time: Saturday, December 17, 2016 01:40 - CONCLUSION: Fractures of the first and fourth metatarsal necks Lewis Saldana MD Chest X-Ray 12/17/16 0000 Signed Impressions: Service Date/Time: Saturday, December 17, 2016 07:44 - CONCLUSION: Clear lungs. Gigi Read MD Chest X-Ray 12/17/16 0000 Signed Impressions: Service Date/Time: Saturday, December 17, 2016 00:43 - CONCLUSION: Normal examination except for the endotracheal tube is extending into the right bronchus. Lewis Saldana MD Ankle X-Ray 12/17/16 0000 Signed Impressions: Service Date/Time: Saturday, December 17, 2016 01:40 - CONCLUSION: Parasagittal fracture through the distal lateral tibial plafond with widening of the medial mortise. Lewis Saldana MD Objective Remarks RUE: splint in place dino wrap and dressing intact minimal movements with digits + numbness/tingling reports +sensation to median/ulnar nerve distribution inability to extend fingers but is able to flex them LLE: splint in place dino wrap and dressing intact good movement and sensation to toes Assessment & Plan Problem List: (1) Open fracture of shaft of right humerus (2) Strain of triceps tendon (3) Fracture of ankle, left, closed (4) Closed fracture of shaft of right radius and ulna Assessment and Plan POD 2 1) Open reduction internal fixation right radius and ulna shaft fractures, open reduction internal fixation of left distal tibia, open reduction internal fixation left ankle syndesmosis, irrigation and debridement with complex wound closure left foot 20 cm in length. I&D with wound closure right humerus with DC of vac POD 3 1) Right humerus open reduction internal fixation using [employer] specialty distal humerus locking plate. 2) Primary repair of right triceps rupture. 3) Irrigation and debridement open fracture with curetting of bone and removal of small bone fragments. 4) Exploration of rupture radial nerve. 5) Placement of vaccum-assisted closure device. Pain management DVT prophylaxis - Lovenox Physical therapy - non weight bearing on right arm and left leg Do not change dressings - maintain splints Dr Back to proceed with Radial nerve repair at some point this week Monitor Rafael Perales Dec 20, 2016 07:26
[2016-12-20] MEDS: CHLORHEXIDINE 0.12% (ORAL KIT) 15 ML CUP MT SCH ×2 (07:39→20:00)
[2016-12-20] MEDS: MORPHINE SULFATE 4 MG/ML INJ IV PUSH PRN ×4 (07:51→23:53)
[2016-12-20] MEDS: DOCUSATE SODIUM 50 MG/SENNA 8.6 MG TAB PO SCH ×2 (08:11→20:09)
[2016-12-20] MEDS: ENOXAPARIN SODIUM 30 MG/0.3 ML SYRINGE SQ SCH ×2 (08:11→20:09)
[2016-12-20] MEDS: LACTULOSE SYRUP 20 GM/30 ML CUP PO SCH (08:11)
[2016-12-20] MEDS: POVIDONE IODINE 10% OINT 30 GM TUBE TOPICAL SCH ×2 (08:11→20:07)
[2016-12-20] MEDS: SODIUM CHLORIDE 0.9% FLUSH 10 ML FLUSH IV FLUSH SCH ×2 (08:11→20:09)
[2016-12-20] MEDS: BACITRACIN TOP OINT 15 GM TUBE TOPICAL SCH ×4 (08:11→20:09)
[2016-12-20] MEDS: SODIUM CHLOR 0.9% 1000 ML INJ 1,000 ML IV SCH (09:12)
[2016-12-20] MEDS: ONDANSETRON HCL 4 MG/2 ML VIAL IV PRN (10:21)
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
[2016-12-20] MEDS: ACETAMINOPHEN/HYDROcodone 325 MG/10 MG TAB PO PRN ×2 (12:21→15:27)
--- NOTE | 2016-12-20 16:45 | PD.PLAS.PN ---
Subjective Remarks Patient is resting comfortably. She is alert and awake today. Objective Vital Signs Date Time Temp Pulse Resp B/P Pulse Ox O2 Delivery O2 Flow Rate FiO2 12/20/16 16:00 72 12/20/16 16:00 99.1 72 12 125/62 100 12/20/16 14:00 77 12/20/16 13:28 14 12/20/16 13:28 14 12/20/16 12:00 99.3 92 12 128/58 100 12/20/16 12:00 66 12/20/16 10:00 89 12/20/16 08:02 100 Nasal Cannula 3.00 12/20/16 08:00 98.8 78 10 112/65 100 12/20/16 08:00 72 12/20/16 07:00 100 Nasal Cannula 2.00 12/20/16 06:00 78 12/20/16 04:00 99.5 86 10 108/65 100 12/20/16 04:00 86 12/20/16 02:00 72 12/20/16 00:00 79 12/20/16 00:00 100.0 79 14 131/60 95 12/19/16 22:00 86 12/19/16 21:22 100 Nasal Cannula 2.00 12/19/16 20:00 91 12/19/16 20:00 99.9 98 17 130/77 100 12/19/16 19:00 100 Nasal Cannula 2.00 12/19/16 18:00 103 I/O 12/19/16 12/19/16 12/19/16 12/20/16 12/20/16 12/20/16 07:00 15:00 23:00 07:00 15:00 23:00 Intake Total 924 ml 1141 ml 1202 ml 1194 ml 1009 ml Output Total 1200 ml 2175 ml 1900 ml 2100 ml 1160 ml Balance -276 ml -1034 ml -698 ml -906 ml -151 ml Intake Oral 300 ml 360 ml 300 ml IV Total 823 ml 928 ml 902 ml 834 ml 709 ml Tube Feeding 101 ml 153 ml Other 60 ml Output Urine Total 1200 ml 2150 ml 1900 ml 2100 ml 1150 ml Drainage Total 0 ml 25 ml 0 ml 0 ml 10 ml # Bowel Movements 0 0 0 0 0 Laboratory Tests Test 12/20/16 04:01 White Blood Count 8.4 Red Blood Count 3.21 Hemoglobin 9.0 Hematocrit 26.6 Mean Corpuscular Volume 83.0 Mean Corpuscular Hemoglobin 28.1 Mean Corpuscular Hemoglobin 33.9 Concent Red Cell Distribution Width 15.8 Platelet Count 120 Mean Platelet Volume 8.8 Neutrophils (%) (Auto) 85.3 Lymphocytes (%) (Auto) 9.6 Monocytes (%) (Auto) 2.8 Eosinophils (%) (Auto) 1.4 Basophils (%) (Auto) 0.9 Neutrophils # (Auto) 7.2 Lymphocytes # (Auto) 0.8 Monocytes # (Auto) 0.2 Eosinophils # (Auto) 0.1 Basophils # (Auto) 0.1 CBC Comment DIFF FINAL Differential Comment Sodium Level 139 Potassium Level 3.3 Chloride Level 105 Carbon Dioxide Level 25.6 Anion Gap 8 Blood Urea Nitrogen 3 Creatinine 0.56 Estimat Glomerular Filtration 93 Rate Random Glucose 86 Calcium Level 7.6 Total Bilirubin 0.7 Aspartate Amino Transf 56 (AST/SGOT) Alanine Aminotransferase 25 (ALT/SGPT) Alkaline Phosphatase 109 Total Protein 5.1 Albumin 1.9 Result Diagram: 12/20/1640012/20/16400 Exam Findings Wounds of the face are healing well without evidence of infection. Wound of the forehead is open and clean. Majority of the face is covered with crusting softened with ointment. Assessment and Plan Diagnosis: (1) Wounds, open, face, multiple Assessment and Plan The recommendation is for the patient to undergo surgery for closure of wounds of the face and forehead. The procedure is discussed with the patient and her mother. They indicated that they understood and opted to proceed. Discussed with nurse. Jess Duarte Dec 20, 2016 16:45
[2016-12-20] MEDS: GABAPENTIN 300 MG CAP PO SCH (17:04)
[2016-12-20] MEDS: MAGNESIUM HYDROXIDE SUSP 30 ML CUP PO SCH (20:08)
[2016-12-20] MEDS: DIAZEPAM 2 MG TAB PO SCH (20:09)
[2016-12-21] MEDS ORDERED: LACTATED RINGER'S 1000 ML IV PRN (00:15)
[2016-12-21] MEDS ORDERED: SODIUM CHLORID 0.9% 500 ML IV PRN (00:15)
[2016-12-21] MEDS ORDERED: CHLORHEXIDINE GLUCONATE 2 % 1 PACK (2 CLOTHS) TOPICAL PRN (00:15)
[2016-12-21] MEDS ORDERED: POVIDONE IODINE 5% (ANTISEPSIS KIT) 4 APPLICATIONS EACH NARE PRN (00:15)
[2016-12-21] MEDS ORDERED: INSULIN HUMAN REGULAR 1,000 UNITS/10 ML VIAL SQ PRN (00:15)
[2016-12-21] MEDS: ceFAZolin 2 GM PREMIX 50 ML IV SCH ×2 (01:26→10:31)
[2016-12-21] MEDS: GENTAMICIN INJ 100 MG in SODIUM CHLORIDE 0.9% INJ 100 ML IV SCH ×3 (04:13→22:31)
[2016-12-21] MEDS: MORPHINE SULFATE 4 MG/ML INJ IV PUSH PRN ×4 (04:19→23:31)
[2016-12-21] MEDS: RESP: ALBUTEROL 2.5 MG/IPRATROPIUM 0.5 MG NEB (SCH) NEB ×2 (04:32→09:51)
[2016-12-21 04:34] VITALS: O2SAT 97
[2016-12-21 04:45] VITALS: BP 104/54; PULSE 85; RESP 17; TEMP 98.5; O2SAT 100
[2016-12-21] MEDS: KETOROLAC TROMETHAMINE 30 MG/ML (IVP) VIAL IV PUSH SCH ×3 (06:01→18:00)
--- NOTE | 2016-12-21 06:48 | PD.ORT.PN ---
Subjective Subjective Remarks s/p ORIF right BBFA - POD 3 s/p ORIF Left Ankle - POD 3 s/p ORIF Right Distal Humerus - POD 4 s/p right arm radial nerve lesion -extubated. doing well. resting comfortably. no complaints Objective Vitals Vital Signs Date Time Temp Pulse Resp B/P Pulse Ox O2 Delivery O2 Flow Rate FiO2 12/21/16 04:45 98.5 85 17 104/54 100 12/21/16 04:34 97 Nasal Cannula 3.00 12/20/16 22:15 99.4 83 17 130/62 99 12/20/16 20:00 99.3 98 20 124/62 100 Arterial Line 12/20/16 20:00 85 12/20/16 19:48 98 Nasal Cannula 3.00 12/20/16 19:00 100 Nasal Cannula 2.00 12/20/16 18:00 98 12/20/16 16:00 72 12/20/16 16:00 99.1 72 12 125/62 100 12/20/16 14:00 77 12/20/16 13:28 14 12/20/16 13:28 14 12/20/16 12:00 99.3 92 12 128/58 100 12/20/16 12:00 66 12/20/16 10:00 89 12/20/16 08:02 100 Nasal Cannula 3.00 12/20/16 08:00 98.8 78 10 112/65 100 12/20/16 08:00 72 12/20/16 07:00 100 Nasal Cannula 2.00 I/O 12/20/16 12/20/16 12/20/16 12/21/16 12/21/16 12/21/16 07:00 15:00 23:00 07:00 15:00 23:00 Intake Total 1194 ml 1009 ml Output Total 2100 ml 1160 ml Balance -906 ml -151 ml Intake Oral 360 ml 300 ml IV Total 834 ml 709 ml Output Urine Total 2100 ml 1150 ml Drainage Total 0 ml 10 ml # Bowel Movements 0 0 Result Diagram: 12/20/16 04012/20/16 040 Imaging Last 24 hours Impressions Thoracic Spine CT 12/17/16 0053 Signed Impressions: Service Date/Time: Saturday, December 17, 2016 01:15 - CONCLUSION: Normal examination except for question of a hairline fracture of the right 11th rib. Lewis Saldana MD Pelvis X-Ray 12/17/1652 Signed Impressions: Service Date/Time: Saturday, December 17, 2016 00:43 - CONCLUSION: Unremarkable examination of the pelvis. Lewis Saldana MD Maxillofacial CT 12/17/1652 Signed Impressions: Service Date/Time: Saturday, December 17, 2016 01:04 - CONCLUSION: Soft tissue injury and debris in the left periorbital and frontal regions. No evidence of underlying fracture Lewis Saldana MD Lumbar Spine CT 12/17/1652 Signed Impressions: Service Date/Time: Saturday, December 17, 2016 01:15 - CONCLUSION: Normal examination. Lewis Saldana MD Head CT 12/17/1652 Signed Impressions: Service Date/Time: Saturday, December 17, 2016 01:04 - CONCLUSION: Intracranial exam is normal. Extensive soft tissue swelling and number of loose bodies in the subcutaneous fat. Lewis Saldana MD Chest X-Ray 12/17/1652 Signed Impressions: Service Date/Time: Saturday, December 17, 2016 00:43 - CONCLUSION: Normal examination except the patient is intubated with the tip in the endotracheal tube in the upper right bronchus. Left subclavian introducer sheath in good position Lewis Saldana MD Chest CT 12/17/1652 Signed Impressions: Service Date/Time: Saturday, December 17, 2016 01:15 - CONCLUSION: No definite evidence of infiltrate or pneumothorax. There is a small pneumomediastinum. ET tube is now in good position. Lewis Saldana MD Cervical Spine CT 12/17/1652 Signed Impressions: Service Date/Time: Saturday, December 17, 2016 01:04 - CONCLUSION: Normal examination. Lewis Saldana MD Abdomen/Pelvis CT 12/17/1652 Signed Impressions: Service Date/Time: Saturday, December 17, 2016 01:15 - CONCLUSION: 2 small hemangioma in the liver. Solid organs are otherwise unremarkable except for a right 11th rib fracture nondisplaced. Lewis Saldana MD Radius/Ulna X-Ray 12/17/16 0000 Signed Impressions: Service Date/Time: Saturday, December 17, 2016 01:40 - CONCLUSION: Fracture of the midshaft of the humerus and mid shaft of the radius and ulna. Lewis Saldana MD Humerus X-Ray 12/17/16 Signed Impressions: Service Date/Time: Saturday, December 17, 2016 04:22 - CONCLUSION: Status post fracture fixation with large remaining soft tissue defect. Lewis Saldana MD Humerus X-Ray 12/17/16 Signed Impressions: Service Date/Time: Saturday, December 17, 2016 00:43 - CONCLUSION: Transverse humeral shaft fracture Lewis Saldana MD Foot X-Ray 12/17/16 Signed Impressions: Service Date/Time: Saturday, December 17, 2016 01:40 - CONCLUSION: Fractures of the first and fourth metatarsal necks Lewis Saldana MD Chest X-Ray 12/17/16 Signed Impressions: Service Date/Time: Saturday, December 17, 2016 07:44 - CONCLUSION: Clear lungs. Gigi Read MD Chest X-Ray 12/17/16 Signed Impressions: Service Date/Time: Saturday, December 17, 2016 00:43 - CONCLUSION: Normal examination except for the endotracheal tube is extending into the right bronchus. Lewis Saldana MD Ankle X-Ray 12/17/16 Signed Impressions: Service Date/Time: Saturday, December 17, 2016 01:40 - CONCLUSION: Parasagittal fracture through the distal lateral tibial plafond with widening of the medial mortise. Lewis Saldana MD Objective Remarks RUE: splint in place dino wrap and dressing intact minimal movements with digits + numbness/tingling reports +sensation to median/ulnar nerve distribution inability to extend fingers but is able to flex them LLE: splint in place dino wrap and dressing intact good movement and sensation to toes Assessment & Plan Problem List: (1) Open fracture of shaft of right humerus (2) Strain of triceps tendon (3) Fracture of ankle, left, closed (4) Closed fracture of shaft of right radius and ulna Assessment and Plan POD 3 1) Open reduction internal fixation right radius and ulna shaft fractures, open reduction internal fixation of left distal tibia, open reduction internal fixation left ankle syndesmosis, irrigation and debridement with complex wound closure left foot 20 cm in length. I&D with wound closure right humerus with DC of vac POD 4 1) Right humerus open reduction internal fixation using [employer] specialty distal humerus locking plate. 2) Primary repair of right triceps rupture. 3) Irrigation and debridement open fracture with curetting of bone and removal of small bone fragments. 4) Exploration of rupture radial nerve. 5) Placement of vaccum-assisted closure device. Pain management DVT prophylaxis - Lovenox Physical therapy - non weight bearing on right arm and left leg Do not change dressings - maintain splints Dr Back to proceed with Radial nerve repair at some point this week Monitor Rafael Perales Dec 21, 2016 06:48
[2016-12-21 07:20] VITALS: BP 113/56; PULSE 70; RESP 18; TEMP 96.5; O2SAT 100
[2016-12-21] MEDS: CHLORHEXIDINE 0.12% (ORAL KIT) 15 ML CUP MT SCH (08:00)
[2016-12-21] MEDS ORDERED: BISACODYL EC 5 MG TABEC PO ONE (08:15)
[2016-12-21] MEDS ORDERED: BISACODYL 10 MG SUPP RECTAL ONE (08:15)
[2016-12-21] MEDS: ENOXAPARIN SODIUM 30 MG/0.3 ML SYRINGE SQ SCH ×2 (09:00→21:00)
[2016-12-21] MEDS: POVIDONE IODINE 10% OINT 30 GM TUBE TOPICAL SCH ×2 (09:00→21:00)
[2016-12-21] MEDS: BACITRACIN TOP OINT 15 GM TUBE TOPICAL SCH ×4 (09:00→21:00)
[2016-12-21 09:04] LABS: AUTOMATED NEUTROPHIL # 4.1 TH/MM3 (1.8-7.7); BASOPHIL % 0.8 % (0.0-2.0); EOSINOPHIL # 0.1 TH/MM3 (0-0.4); EOSINOPHIL % 2.2 % (0.0-4.0); LYMPH % 16.5 % (9.0-44.0); LYMPHOCYTE # 0.9 TH/MM3 (1.0-4.8); MEAN CELL VOLUME 84.7 FL (80.0-100.0); MEAN CORPUSCULAR HEMOGLOBIN 27.9 PG (27.0-34.0); MEAN CORPUSCULAR HGB CONC 32.9 % (32.0-36.0); MONO % 4.1 % (0.0-8.0); NEUT % 76.4 % (16.0-70.0); PLATELET COUNT 142 TH/MM3 (150-450); RED BLOOD COUNT 2.96 MIL/MM3 (4.00-5.30); RED CELL DISTRIBUTION WIDTH 16.1 % (11.6-17.2); WHITE BLOOD COUNT 5.4 TH/MM3 (4.0-11.0)
[2016-12-21 09:07] LABS: HEMO FLAGS AUTO DIFF
[2016-12-21] MEDS ORDERED: PROPOFOL 200 MG/20 ML AMP IV ONE (09:17)
[2016-12-21] MEDS ORDERED: NEOSTIGMINE 3 MG/3 ML SYR IV ONE (09:20)
[2016-12-21] MEDS ORDERED: ONDANSETRON HCL 4 MG/2 ML VIAL IV PUSH ONE (09:21)
[2016-12-21] MEDS ORDERED: LACTATED RINGER'S 1000 ML INJ 1,000 ML IV ONE (09:22)
[2016-12-21 09:25] LABS: ANION GAP 5 MEQ/L (5-15); AST (GOT) 34 U/L (15-37); BLOOD UREA NITROGEN 5 MG/DL (7-18); CHLORIDE 102 MEQ/L (98-107); GLOMERULAR FILTRATION RATE 86 ML/MIN (>89); MAGNESIUM 2.1 MG/DL (1.5-2.5); POTASSIUM 3.1 MEQ/L (3.5-5.1); SODIUM (NA) 139 MEQ/L (136-145)
[2016-12-21 09:26] LABS: ALT (GPT) 20 U/L (10-53)
[2016-12-21 09:28] LABS: ALKALINE PHOSPHATASE 107 U/L (45-117); TOTAL BILIRUBIN ADULT 0.4 MG/DL (0.2-1.0)
[2016-12-21] MEDS: GABAPENTIN 300 MG CAP PO SCH ×3 (09:31→18:00)
[2016-12-21] MEDS: DOCUSATE SODIUM 50 MG/SENNA 8.6 MG TAB PO SCH ×2 (09:31→21:04)
[2016-12-21] MEDS: DIAZEPAM 2 MG TAB PO SCH ×2 (09:32→21:05)
[2016-12-21] MEDS: SODIUM CHLORIDE 0.9% FLUSH 10 ML FLUSH IV FLUSH SCH ×2 (09:38→21:00)
[2016-12-21 09:53] VITALS: O2SAT 95
[2016-12-21 10:26] LABS: BANDS 2 % (0-6); BASOPHILS 1 % (0-2); EOSINOPHILS 4 % (0-4); NEUTROPHIL # MANUAL DIFF 4.2 TH/MM3 (1.8-7.7); POLYS (SEG NEUTROPHILS) 75 % (16-70); WBC DIFF SAMPLE 100
[2016-12-21 10:27] LABS: PLATELET ESTIMATE SMEAR LOW (NORMAL); PLATELET MORPHOLOGY NORMAL (NORMAL); SCAN/DIFF FINAL DIFF MANUAL
[2016-12-21] MEDS: LACTULOSE SYRUP 20 GM/30 ML CUP PO SCH (10:35)
[2016-12-21 11:29] VITALS: BP 119/63; PULSE 79; RESP 18; TEMP 98.1; O2SAT 100
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
[2016-12-21] MEDS ORDERED: FAMOTIDINE 20 MG/2 ML VIAL ONE (15:51)
[2016-12-21] MEDS ORDERED: MIDAZOLAM HCL 2 MG/2 ML VIAL ONE (15:51)
[2016-12-21] MEDS ORDERED: LIDOCAINE 1%/EPINEPHrine 1:100,000 SOLN 20 ML VIAL ONE (16:34)
[2016-12-21] MEDS ORDERED: ARTIFICIAL TEARS OPTH OINT 3.5 APPLIC/3.5 GM TUBO ONE (17:37)
[2016-12-21] MEDS ORDERED: DEXAMETHASONE SOD PHOS 4 MG/ML VIAL ONE (18:10)
[2016-12-21] MEDS ORDERED: ceFAZolin 2 GM PREMIX 50 ML ONE (18:17)
[2016-12-21] MEDS ORDERED: fentaNYL CITRATE 250 MCG/5 ML AMP ONE (18:19)
--- NOTE | 2016-12-21 18:21 | HHI.PR ---
Immediate Post Op Note Procedure Date: Dec 21, 2016 Pre Op Diagnosis: (1) Wounds, open, face, multiple Post Op Diagnosis: (1) Wounds, open, face, multiple Surgeon: Lawanda Cole [employer] Developer(s): None Procedure: 1. Repair of avulsion laceration of forehead, 4.5 cm in length. 2. Repair 2.0 cm laceration of left lower eyelid. 3. Repair of 1.5 cm laceration of right cheek. Anesthesia: General Drains: None Patient to: PACU Patient Condition: Good Date/Time of Procedure: SEE SURGICAL CARE RECORD Lawanda Cole MD Dec 21, 2016 18:21
[2016-12-21] MEDS ORDERED: *morphine SULFATE 8 MG/ML PERIprocedure ONLY ONE ×2 (18:30→18:39)
[2016-12-21] MEDS ORDERED: *ONDANSETRON 4 MG VIAL PERIprocedural Use ONLY ONE (18:32)
[2016-12-21] MEDS ORDERED: DO NOT ADM ANY ANTICOAGULANT DRUGS PRN (18:45)
[2016-12-21 20:10] VITALS: BP 129/63; PULSE 91; RESP 17; TEMP 99.9; O2SAT 99
[2016-12-21] MEDS ORDERED: POTASSIUM CHLORIDE 20 MEQ CONTROLLED RELEASE TAB PO ONE (21:00)
[2016-12-21] MEDS: FAMOTIDINE 20 MG TAB PO SCH (21:03)
[2016-12-21] MEDS: MAGNESIUM HYDROXIDE SUSP 30 ML CUP PO SCH (21:03)
[2016-12-21] MEDS ORDERED: OXYC-395 PO (21:04)
[2016-12-21] MEDS ORDERED: WHEEMIS3 (21:05)
[2016-12-22 00:20] VITALS: BP 139/63; PULSE 98; RESP 17; TEMP 98.9; O2SAT 98
[2016-12-22] MEDS: KETOROLAC TROMETHAMINE 30 MG/ML (IVP) VIAL IV PUSH SCH ×4 (00:36→23:58)
[2016-12-22 04:20] VITALS: BP 110/70; PULSE 64; RESP 16; TEMP 98.9; O2SAT 100
[2016-12-22] MEDS: GENTAMICIN INJ 100 MG in SODIUM CHLORIDE 0.9% INJ 100 ML IV SCH ×3 (05:17→21:23)
[2016-12-22] MEDS: MORPHINE SULFATE 4 MG/ML INJ IV PUSH PRN ×3 (05:17→23:58)
--- NOTE | 2016-12-22 07:03 | PD.ORT.PN ---
Subjective Subjective Remarks No new complaint. Planning for surgery today for radial nerve repair Objective Vitals Vital Signs Date Time Temp Pulse Resp B/P Pulse Ox O2 Delivery O2 Flow Rate FiO2 12/22/16 00:20 98.9 98 17 139/63 98 12/21/16 20:10 99.9 91 17 129/63 99 12/21/16 19:15 98.8 82 17 111/70 100 Nasal Cannula 2 12/21/16 19:00 85 15 118/70 100 Nasal Cannula 2 12/21/16 18:45 76 16 122/71 100 Nasal Cannula 2 12/21/16 18:30 92 15 106/68 100 Nasal Cannula 2 12/21/16 18:15 99.1 103 15 115/74 100 Nasal Cannula 2 12/21/16 11:29 98.1 79 18 119/63 100 12/21/16 09:53 95 Nasal Cannula 3.00 12/21/16 07:20 96.5 70 18 113/56 100 I/O 12/21/16 12/21/16 12/21/16 12/22/16 12/22/16 12/22/16 07:00 15:00 23:00 07:00 15:00 23:00 Intake Total 800 ml 0 ml 1500 ml 480 ml Output Total 2850 ml 750 ml 810 ml 1100 ml Balance -2050 ml -750 ml 690 ml -620 ml Intake Oral 800 ml 0 ml 480 ml IV Total 300 ml Other 1200 ml Output Urine Total 2850 ml 750 ml 800 ml 1100 ml Estimated Blood Loss 10 ml # Bowel Movements 0 0 0 Result Diagram: 12/21/16 0605 12/21/16 06 Imaging Last 24 hours Impressions Thoracic Spine CT 12/17/1652 Signed Impressions: Service Date/Time: Saturday, December 17, 2016 01:15 - CONCLUSION: Normal examination except for question of a hairline fracture of the right 11th rib. Lewis Saldana MD Pelvis X-Ray 12/17/1652 Signed Impressions: Service Date/Time: Saturday, December 17, 2016 00:43 - CONCLUSION: Unremarkable examination of the pelvis. Lewis Saldana MD Maxillofacial CT 12/17/1652 Signed Impressions: Service Date/Time: Saturday, December 17, 2016 01:04 - CONCLUSION: Soft tissue injury and debris in the left periorbital and frontal regions. No evidence of underlying fracture Lewis Saldana MD Lumbar Spine CT 12/17/163 Signed Impressions: Service Date/Time: Saturday, December 17, 2016 01:15 - CONCLUSION: Normal examination. Lewis Saldana MD Head CT 12/17/1652 Signed Impressions: Service Date/Time: Saturday, December 17, 2016 01:04 - CONCLUSION: Intracranial exam is normal. Extensive soft tissue swelling and number of loose bodies in the subcutaneous fat. Lewis Saldana MD Chest X-Ray 12/17/1652 Signed Impressions: Service Date/Time: Saturday, December 17, 2016 00:43 - CONCLUSION: Normal examination except the patient is intubated with the tip in the endotracheal tube in the upper right bronchus. Left subclavian introducer sheath in good position Lewis Saldana MD Chest CT 12/17/1652 Signed Impressions: Service Date/Time: Saturday, December 17, 2016 01:15 - CONCLUSION: No definite evidence of infiltrate or pneumothorax. There is a small pneumomediastinum. ET tube is now in good position. Lewis Saldana MD Cervical Spine CT 12/17/1652 Signed Impressions: Service Date/Time: Saturday, December 17, 2016 01:04 - CONCLUSION: Normal examination. Lewis Saldana MD Abdomen/Pelvis CT 12/17/1652 Signed Impressions: Service Date/Time: Saturday, December 17, 2016 01:15 - CONCLUSION: 2 small hemangioma in the liver. Solid organs are otherwise unremarkable except for a right 11th rib fracture nondisplaced. Lewis Saldana MD Radius/Ulna X-Ray 12/17/16 Signed Impressions: Service Date/Time: Saturday, December 17, 2016 01:40 - CONCLUSION: Fracture of the midshaft of the humerus and mid shaft of the radius and ulna. Lewis Saldana MD Humerus X-Ray 12/17/16 Signed Impressions: Service Date/Time: Saturday, December 17, 2016 04:22 - CONCLUSION: Status post fracture fixation with large remaining soft tissue defect. Lewis Saldana MD Humerus X-Ray 7/2/17 0000 Signed Impressions: Service Date/Time: Saturday, December 17, 2016 00:43 - CONCLUSION: Transverse humeral shaft fracture Lewis Saldana MD Foot X-Ray 12/17/16 Signed Impressions: Service Date/Time: Saturday, December 17, 2016 01:40 - CONCLUSION: Fractures of the first and fourth metatarsal necks Lewis Saldana MD Chest X-Ray 12/17/16 Signed Impressions: Service Date/Time: Saturday, December 17, 2016 07:44 - CONCLUSION: Clear lungs. Gigi Read MD Chest X-Ray 12/17/16 Signed Impressions: Service Date/Time: Saturday, December 17, 2016 00:43 - CONCLUSION: Normal examination except for the endotracheal tube is extending into the right bronchus. Lewis Saldana MD Ankle X-Ray 12/17/16 Signed Impressions: Service Date/Time: Saturday, December 17, 2016 01:40 - CONCLUSION: Parasagittal fracture through the distal lateral tibial plafond with widening of the medial mortise. Lewis Saldana MD Objective Remarks RUE: splint in place dino wrap and dressing intact minimal movements with digits + numbness/tingling reports +sensation to median/ulnar nerve distribution inability to extend fingers but is able to flex them LLE: splint in place dino wrap and dressing intact good movement and sensation to toes Assessment & Plan Problem List: (1) Open fracture of shaft of right humerus (2) Strain of triceps tendon (3) Fracture of ankle, left, closed (4) Closed fracture of shaft of right radius and ulna Assessment and Plan POD 4 1) Open reduction internal fixation right radius and ulna shaft fractures, open reduction internal fixation of left distal tibia, open reduction internal fixation left ankle syndesmosis, irrigation and debridement with complex wound closure left foot 20 cm in length. I&D with wound closure right humerus with DC of vac POD 5 1) Right humerus open reduction internal fixation using [employer] specialty distal humerus locking plate. 2) Primary repair of right triceps rupture. 3) Irrigation and debridement open fracture with curetting of bone and removal of small bone fragments. 4) Exploration of rupture radial nerve. 5) Placement of vaccum-assisted closure device. Pain management DVT prophylaxis - Lovenox Physical therapy - non weight bearing on right arm and left leg Do not change dressings - maintain splints Dr Back to proceed with Radial nerve repair today Monitor Armaan Gonzales Jr. Dec 22, 2016 07:03
[2016-12-22 07:29] VITALS: BP 126/59; PULSE 81; RESP 17; TEMP 98.5; O2SAT 99
[2016-12-22] MEDS ORDERED: MAGNESIUM CITRATE SOLN 300 ML BTL PO ONE (09:00)
[2016-12-22] MEDS: ENOXAPARIN SODIUM 30 MG/0.3 ML SYRINGE SQ SCH ×2 (09:00→21:00)
[2016-12-22] MEDS: LACTULOSE SYRUP 20 GM/30 ML CUP PO SCH (09:00)
[2016-12-22] MEDS: BACITRACIN TOP OINT 15 GM TUBE TOPICAL SCH ×4 (09:00→21:25)
[2016-12-22] MEDS: POVIDONE IODINE 10% OINT 30 GM TUBE TOPICAL SCH ×2 (09:00→21:00)
[2016-12-22] MEDS: GABAPENTIN 300 MG CAP PO SCH ×2 (09:27→13:00)
[2016-12-22] MEDS: DOCUSATE SODIUM 50 MG/SENNA 8.6 MG TAB PO SCH ×2 (09:27→21:24)
[2016-12-22] MEDS: DIAZEPAM 2 MG TAB PO SCH ×2 (09:28→21:24)
[2016-12-22 09:30] VITALS: O2SAT 99
[2016-12-22] MEDS ORDERED: NEOSTIGMINE 3 MG/3 ML SYR IV ONE (09:47)
[2016-12-22] MEDS ORDERED: PROPOFOL 200 MG/20 ML AMP IV ONE (09:47)
[2016-12-22] MEDS ORDERED: LACTATED RINGER'S 1000 ML INJ 1,000 ML IV ONE (09:48)
[2016-12-22] MEDS ORDERED: ONDANSETRON HCL 4 MG/2 ML VIAL IV PUSH ONE (09:48)
[2016-12-22] MEDS: ONDANSETRON HCL 4 MG/2 ML VIAL IV PRN (10:31)
[2016-12-22] MEDS: SODIUM CHLORIDE 0.9% FLUSH 10 ML FLUSH IV FLUSH SCH ×2 (10:40→21:24)
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
[2016-12-22 11:28] VITALS: BP 125/70; PULSE 82; RESP 17; TEMP 98.5; O2SAT 100
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
--- NOTE | 2016-12-22 13:49 | OTSOAPIP ---
ATTEMPTED TO SEE PATIENT FOR INITIAL EVALUATION, HOWEVER PATIENT IS OFF FLOOR FOR RADIAL NERVE REPAIR. WILL REATTEMPT EVALUATION TOMORROW. INTERDISCIPLINARY COMMUNICATION: REVIEWED ELECTRONIC MEDICAL RECORD Therapist: Maru Mena OTR/Daina Signature on file
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
[2016-12-22] MEDS ORDERED: LIDOCAINE HCL 2% 50 ML VIAL INFIL ONE (15:45)
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
[2016-12-22] MEDS ORDERED: DO NOT ADM ANY ANTICOAGULANT DRUGS PRN (18:13)
[2016-12-22] MEDS ORDERED: *morphine SULFATE 8 MG/ML PERIprocedure ONLY ONE ×3 (18:30→19:05)
[2016-12-22] MEDS ORDERED: ACETAMINOPHEN 1000 MG/100 ML VIAL IV ONE (18:32)
[2016-12-22] MEDS ORDERED: MIDAZOLAM HCL 2 MG/2 ML VIAL ONE (18:35)
[2016-12-22] MEDS ORDERED: MORPHINE SULFATE 4 MG/ML INJ ONE (18:36)
[2016-12-22] MEDS ORDERED: fentaNYL CITRATE 250 MCG/5 ML AMP ONE (18:36)
[2016-12-22 19:00] VITALS: BP 102/58; PULSE 81; RESP 17; TEMP 99.1; O2SAT 100
[2016-12-22 19:16] LABS: DRAW SITE LT RADIAL
[2016-12-22] MEDS: MAGNESIUM HYDROXIDE SUSP 30 ML CUP PO SCH (21:23)
[2016-12-22] MEDS: FAMOTIDINE 20 MG TAB PO SCH (21:24)
[2016-12-23] VITALS (7 sets, daily range): BP systolic 93–132; BP diastolic 54–88; PULSE 80–99; RESP 16–18; TEMP 97–99.8; O2SAT 94–100
[2016-12-23] MEDS: MORPHINE SULFATE 4 MG/ML INJ IV PUSH PRN ×3 (04:58→22:57)
[2016-12-23] MEDS: KETOROLAC TROMETHAMINE 30 MG/ML (IVP) VIAL IV PUSH SCH (05:17)
[2016-12-23] MEDS: GENTAMICIN INJ 100 MG in SODIUM CHLORIDE 0.9% INJ 100 ML IV SCH ×3 (05:44→22:01)
[2016-12-23] MEDS ORDERED: MORPHINE SULFATE 8 MG/ML INJ IV PUSH SCH (05:45)
[2016-12-23] MEDS ORDERED: MAGNESIUM CITRATE SOLN 300 ML BTL PO ONE (07:30)
[2016-12-23 07:51] LABS: BASOPHIL % 0.3 % (0.0-2.0); EOSINOPHIL # 0.2 TH/MM3 (0-0.4); EOSINOPHIL % 1.9 % (0.0-4.0); HEMATOCRIT 24.3 % (35.0-46.0); LYMPH % 26.7 % (9.0-44.0); LYMPHOCYTE # 2.5 TH/MM3 (1.0-4.8); MEAN CELL VOLUME 85.8 FL (80.0-100.0); MEAN CORPUSCULAR HEMOGLOBIN 28.4 PG (27.0-34.0); MEAN CORPUSCULAR HGB CONC 33.1 % (32.0-36.0); MONO % 8.4 % (0.0-8.0); NEUT % 62.7 % (16.0-70.0); PLATELET COUNT 217 TH/MM3 (150-450); RED BLOOD COUNT 2.83 MIL/MM3 (4.00-5.30); RED CELL DISTRIBUTION WIDTH 15.7 % (11.6-17.2); WHITE BLOOD COUNT 9.5 TH/MM3 (4.0-11.0)
[2016-12-23 07:56] LABS: HEMO FLAGS AUTO DIFF
[2016-12-23 08:04] LABS: ALT (GPT) 17 U/L (10-53); ANION GAP 6 MEQ/L (5-15); AST (GOT) 29 U/L (15-37); BICARBONATE 29.6 MEQ/L (21.0-32.0); BLOOD UREA NITROGEN 6 MG/DL (7-18); CHLORIDE 103 MEQ/L (98-107); GLOMERULAR FILTRATION RATE 79 ML/MIN (>89); MAGNESIUM 1.8 MG/DL (1.5-2.5); POTASSIUM 3.2 MEQ/L (3.5-5.1); SODIUM (NA) 139 MEQ/L (136-145)
[2016-12-23 08:06] LABS: ALKALINE PHOSPHATASE 76 U/L (45-117); TOTAL BILIRUBIN ADULT 0.4 MG/DL (0.2-1.0)
[2016-12-23] MEDS: LACTULOSE SYRUP 20 GM/30 ML CUP PO SCH (08:39)
[2016-12-23] MEDS: GABAPENTIN 300 MG CAP PO SCH (08:39)
[2016-12-23] MEDS: DOCUSATE SODIUM 50 MG/SENNA 8.6 MG TAB PO SCH ×2 (08:39→20:27)
[2016-12-23] MEDS: ENOXAPARIN SODIUM 30 MG/0.3 ML SYRINGE SQ SCH ×2 (08:40→20:28)
[2016-12-23] MEDS: SODIUM CHLORIDE 0.9% FLUSH 10 ML FLUSH IV FLUSH SCH ×2 (08:41→20:28)
--- NOTE | 2016-12-23 08:45 | PD.ORT.PN ---
Subjective Subjective Remarks Mild distress. Very anxious. States she is in a lot of pain and that the recent morphine 'did nothing for her'. No new symptoms. No new CP or SOB. Objective Vitals Vital Signs Date Time Temp Pulse Resp B/P Pulse Ox O2 Delivery O2 Flow Rate FiO2 12/23/16 08:08 94 21 12/23/16 04:00 98.3 87 16 93/54 96 12/23/16 00:00 98.6 99 16 95/60 97 12/22/16 20:45 21 12/22/16 19:15 98.5 84 12 111/68 99 Simple Mask 4 12/22/16 19:00 68 12 105/63 99 Simple Mask 4 12/22/16 19:00 99.1 81 17 102/58 100 12/22/16 18:45 70 10 125/81 100 Simple Mask 4 12/22/16 18:30 84 10 131/88 100 Simple Mask 6 12/22/16 18:18 98.3 92 11 125/80 100 Simple Mask 6 12/22/16 11:28 98.5 82 17 125/70 100 12/22/16 09:30 99 Nasal Cannula 2.00 I/O 12/22/16 12/22/16 12/22/16 12/23/16 12/23/16 12/23/16 07:00 15:00 23:00 07:00 15:00 23:00 Intake Total 480 ml 0 ml 2480 ml 240 ml Output Total 1100 ml 400 ml 1500 ml 1800 ml Balance -620 ml -400 ml 980 ml -1560 ml Intake Oral 480 ml 0 ml 480 ml 240 ml IV Total 200 ml Other 1800 ml Output Urine Total 1100 ml 400 ml 1400 ml 1800 ml Estimated Blood Loss 100 ml # Voids 0 # Bowel Movements 0 0 0 Result Diagram: 12/23/16 0710 12/23/16 07 Imaging Last 24 hours Impressions Thoracic Spine CT 12/17/1652 Signed Impressions: Service Date/Time: Saturday, December 17, 2016 01:15 - CONCLUSION: Normal examination except for question of a hairline fracture of the right 11th rib. Lewis Saldana MD Pelvis X-Ray 12/17/1652 Signed Impressions: Service Date/Time: Saturday, December 17, 2016 00:43 - CONCLUSION: Unremarkable examination of the pelvis. Lewis Saldana MD Maxillofacial CT 12/17/1652 Signed Impressions: Service Date/Time: Saturday, December 17, 2016 01:04 - CONCLUSION: Soft tissue injury and debris in the left periorbital and frontal regions. No evidence of underlying fracture Lewis Saldana MD Lumbar Spine CT 12/17/1652 Signed Impressions: Service Date/Time: Saturday, December 17, 2016 01:15 - CONCLUSION: Normal examination. Lewis Saldana MD Head CT 12/17/1652 Signed Impressions: Service Date/Time: Saturday, December 17, 2016 01:04 - CONCLUSION: Intracranial exam is normal. Extensive soft tissue swelling and number of loose bodies in the subcutaneous fat. Lewis Saldana MD Chest X-Ray 12/17/1652 Signed Impressions: Service Date/Time: Saturday, December 17, 2016 00:43 - CONCLUSION: Normal examination except the patient is intubated with the tip in the endotracheal tube in the upper right bronchus. Left subclavian introducer sheath in good position Lewis Saldana MD Chest CT 12/17/1652 Signed Impressions: Service Date/Time: Saturday, December 17, 2016 01:15 - CONCLUSION: No definite evidence of infiltrate or pneumothorax. There is a small pneumomediastinum. ET tube is now in good position. Lewis Saldana MD Cervical Spine CT 12/17/1652 Signed Impressions: Service Date/Time: Saturday, December 17, 2016 01:04 - CONCLUSION: Normal examination. Lewis Saldana MD Abdomen/Pelvis CT 12/17/1652 Signed Impressions: Service Date/Time: Saturday, December 17, 2016 01:15 - CONCLUSION: 2 small hemangioma in the liver. Solid organs are otherwise unremarkable except for a right 11th rib fracture nondisplaced. Lewis Saldana MD Radius/Ulna X-Ray 12/17/16 Signed Impressions: Service Date/Time: Saturday, December 17, 2016 01:40 - CONCLUSION: Fracture of the midshaft of the humerus and mid shaft of the radius and ulna. Lewis Saldana MD Humerus X-Ray 7/2/17 0000 Signed Impressions: Service Date/Time: Saturday, December 17, 2016 04:22 - CONCLUSION: Status post fracture fixation with large remaining soft tissue defect. Lewis Saldana MD Humerus X-Ray 12/17/16 0000 Signed Impressions: Service Date/Time: Saturday, December 17, 2016 00:43 - CONCLUSION: Transverse humeral shaft fracture Lewis Saldana MD Foot X-Ray 12/17/16 Signed Impressions: Service Date/Time: Saturday, December 17, 2016 01:40 - CONCLUSION: Fractures of the first and fourth metatarsal necks Lewis Saldana MD Chest X-Ray 12/17/16 0000 Signed Impressions: Service Date/Time: Saturday, December 17, 2016 07:44 - CONCLUSION: Clear lungs. Gigi Read MD Chest X-Ray 12/17/16 Signed Impressions: Service Date/Time: Saturday, December 17, 2016 00:43 - CONCLUSION: Normal examination except for the endotracheal tube is extending into the right bronchus. Lewis Saldana MD Ankle X-Ray 12/17/16 Signed Impressions: Service Date/Time: Saturday, December 17, 2016 01:40 - CONCLUSION: Parasagittal fracture through the distal lateral tibial plafond with widening of the medial mortise. Lewis Saldana MD Objective Remarks Laying in bed, Anxious, mild distress VSS RUE Long arm splint in place, VAC in place, mild swelling fingers, Limited sensation, Cannot actively extend fingers, can flex fingers 4/5, +nvi LLE Dressing/splint intact, mild swelling toes, wiggles toes but limited, sensation intact but limited, +nvi Assessment & Plan Problem List: (1) Open fracture of shaft of right humerus (2) Strain of triceps tendon (3) Fracture of ankle, left, closed (4) Closed fracture of shaft of right radius and ulna Assessment and Plan POD 5 1) Open reduction internal fixation right radius and ulna shaft fractures, open reduction internal fixation of left distal tibia, open reduction internal fixation left ankle syndesmosis, irrigation and debridement with complex wound closure left foot 20 cm in length. I&D with wound closure right humerus with DC of vac POD 6 1) Right humerus open reduction internal fixation using [employer] specialty distal humerus locking plate. 2) Primary repair of right triceps rupture. 3) Irrigation and debridement open fracture with curetting of bone and removal of small bone fragments. 4) Exploration of rupture radial nerve. 5) Placement of vaccum-assisted closure device. *pod#1 s/p I&D right upper arm, radial nerve repair with nerve allograft and conduit wrap per hand surgery -Patient and family aware that it takes months to a year to see radial nerve recovery and may not get return of nerve function and may require tendon transfers to right forearm and hand. -Weightbearing protocol and range of motion per orthopedics. Will follow as outpatient Pain management DVT prophylaxis - Lovenox Physical therapy - non weight bearing on right arm and left leg Do not change dressings - maintain splints Monitor Kyra Rodriguez Dec 23, 2016 08:45
[2016-12-23 08:57] LABS: BANDS 9 % (0-6); CORRECTED NUCLEATED RBC 1 /100 WBC (0-0); EOSINOPHILS 4 % (0-4); METAMYELOCYTES 4 % (0-1); NEUTROPHIL # MANUAL DIFF 6.6 TH/MM3 (1.8-7.7); POLYS (SEG NEUTROPHILS) 56 % (16-70); WBC DIFF SAMPLE 100
[2016-12-23 08:59] LABS: OVALOCYTES 1+ (NORMAL); PLATELET ESTIMATE SMEAR NORMAL (NORMAL); PLATELET MORPHOLOGY NORMAL (NORMAL); SCAN/DIFF FINAL DIFF MANUAL
[2016-12-23] MEDS: POVIDONE IODINE 10% OINT 30 GM TUBE TOPICAL SCH ×2 (09:00→20:28)
[2016-12-23] MEDS: DIAZEPAM 2 MG TAB PO SCH ×2 (09:40→20:27)
[2016-12-23] MEDS: BACITRACIN TOP OINT 15 GM TUBE TOPICAL SCH ×4 (09:44→20:28)
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
[2016-12-23] MEDS ORDERED: POTASSIUM CHLORIDE 10 MEQ CONTROLLED RELEASE TAB PO ONE ×2 (10:00→18:00)
[2016-12-23] MEDS ORDERED: MAGNESIUM OXIDE 400 MG TAB PO ONE (10:00)
[2016-12-23] MEDS: PREGABALIN 100 MG CAP PO SCH ×2 (11:55→20:27)
[2016-12-23] MEDS: HYDROmorphone HCL 4 MG TAB PO PRN ×5 (11:55→23:37)
[2016-12-23] MEDS: LEVOTHYROXINE SODIUM 25 MCG TAB PO SCH (12:31)
[2016-12-23] MEDS: ONDANSETRON HCL 4 MG/2 ML VIAL IV PRN (13:36)
[2016-12-23] MEDS ORDERED: SENN1TAB PO (15:12)
[2016-12-23] MEDS ORDERED: MAGN400S PO (15:12)
[2016-12-23] MEDS ORDERED: BEDSIDE COMMODE1 MI1 (15:17)
[2016-12-23] MEDS ORDERED: WALKER WHEELS/F1 MIS (15:17)
[2016-12-23] MEDS: FAMOTIDINE 20 MG TAB PO SCH (20:27)
[2016-12-23] MEDS: MAGNESIUM HYDROXIDE SUSP 30 ML CUP PO SCH (20:28)
[2016-12-24] VITALS: BP 104/69; PULSE 102; RESP 18; TEMP 99.2; O2SAT 98
[2016-12-24] MEDS: HYDROmorphone HCL 4 MG TAB PO PRN ×4 (05:25→20:07)
[2016-12-24] MEDS: PREGABALIN 100 MG CAP PO SCH ×3 (05:25→20:06)
[2016-12-24] MEDS: GENTAMICIN INJ 100 MG in SODIUM CHLORIDE 0.9% INJ 100 ML IV SCH ×3 (05:25→22:15)
[2016-12-24] MEDS: LEVOTHYROXINE SODIUM 25 MCG TAB PO SCH (05:25)
[2016-12-24] MEDS: MORPHINE SULFATE 4 MG/ML INJ IV PUSH PRN ×2 (05:26→09:56)
[2016-12-24 05:35] LABS: HEMATOCRIT 26.5 % (35.0-46.0); MEAN CELL VOLUME 84.8 FL (80.0-100.0); MEAN CORPUSCULAR HEMOGLOBIN 28.1 PG (27.0-34.0); MEAN CORPUSCULAR HGB CONC 33.1 % (32.0-36.0); PLATELET COUNT 307 TH/MM3 (150-450); RED BLOOD COUNT 3.13 MIL/MM3 (4.00-5.30); RED CELL DISTRIBUTION WIDTH 15.5 % (11.6-17.2); REVIEW FLAG FINAL
[2016-12-24 05:52] LABS: BICARBONATE 30.3 MEQ/L (21.0-32.0); MAGNESIUM 2.4 MG/DL (1.5-2.5); POTASSIUM 3.7 MEQ/L (3.5-5.1)
[2016-12-24 08:00] VITALS: BP 109/71; PULSE 89; RESP 18; TEMP 97.7; O2SAT 96
[2016-12-24] MEDS ORDERED: SOD PHOSPHATE/SOD BIPHOSPHATE (ADULT) ENEMA 133ML RECTAL ONE (08:00)
[2016-12-24] MEDS ORDERED: BISACODYL 10 MG SUPP RECTAL ONE (08:00)
[2016-12-24] MEDS ORDERED: BISACODYL EC 5 MG TABEC PO ONE (08:00)
--- NOTE | 2016-12-24 08:55 | PD.ORT.PN ---
Subjective Subjective Remarks Less anxious today. Appears more comfortable. Apparently the staff struggled getting her left shoulder VAC changed yesterday. No new complaints. Continued pain right arm, left shoulder and left leg. Mother present at bedside. No new CP, SOB or abd pain. Objective Vitals Vital Signs Date Time Temp Pulse Resp B/P Pulse Ox O2 Delivery O2 Flow Rate FiO2 12/24/16 05:31 20 12/24/16 00:00 99.2 102 18 104/69 98 12/23/16 20:00 99.8 95 18 123/77 96 12/23/16 16:00 99.3 93 18 132/88 99 12/23/16 12:03 98.0 80 18 107/70 99 I/O 12/23/16 12/23/16 12/23/16 12/24/16 12/24/16 12/24/16 07:00 15:00 23:00 07:00 15:00 23:00 Intake Total 240 ml 480 ml 580 ml 340 ml Output Total 1800 ml Balance -1560 ml 480 ml 580 ml 340 ml Intake Oral 240 ml 480 ml 480 ml 240 ml IV Total 100 ml 100 ml Output Urine Total 1800 ml # Voids 2 1 2 # Bowel Movements 0 0 0 0 Result Diagram: 12/24/16 0453 12/24/16 045 Imaging Last 24 hours Impressions Thoracic Spine CT 12/17/1652 Signed Impressions: Service Date/Time: Saturday, December 17, 2016 01:15 - CONCLUSION: Normal examination except for question of a hairline fracture of the right 11th rib. Lewis Saldana MD Pelvis X-Ray 12/17/1652 Signed Impressions: Service Date/Time: Saturday, December 17, 2016 00:43 - CONCLUSION: Unremarkable examination of the pelvis. Lewis Saldana MD Maxillofacial CT 12/17/1652 Signed Impressions: Service Date/Time: Saturday, December 17, 2016 01:04 - CONCLUSION: Soft tissue injury and debris in the left periorbital and frontal regions. No evidence of underlying fracture Lewis Saldana MD Lumbar Spine CT 12/17/1652 Signed Impressions: Service Date/Time: Saturday, December 17, 2016 01:15 - CONCLUSION: Normal examination. Lewis Saldana MD Head CT 12/17/1652 Signed Impressions: Service Date/Time: Saturday, December 17, 2016 01:04 - CONCLUSION: Intracranial exam is normal. Extensive soft tissue swelling and number of loose bodies in the subcutaneous fat. Lewis Saldana MD Chest X-Ray 12/17/1652 Signed Impressions: Service Date/Time: Saturday, December 17, 2016 00:43 - CONCLUSION: Normal examination except the patient is intubated with the tip in the endotracheal tube in the upper right bronchus. Left subclavian introducer sheath in good position Lewis Saldana MD Chest CT 12/17/1652 Signed Impressions: Service Date/Time: Saturday, December 17, 2016 01:15 - CONCLUSION: No definite evidence of infiltrate or pneumothorax. There is a small pneumomediastinum. ET tube is now in good position. Lewis Saldana MD Cervical Spine CT 12/17/1652 Signed Impressions: Service Date/Time: Saturday, December 17, 2016 01:04 - CONCLUSION: Normal examination. Lewis Saldana MD Abdomen/Pelvis CT 12/17/1652 Signed Impressions: Service Date/Time: Saturday, December 17, 2016 01:15 - CONCLUSION: 2 small hemangioma in the liver. Solid organs are otherwise unremarkable except for a right 11th rib fracture nondisplaced. Lewis Saldana MD Radius/Ulna X-Ray 12/17/16 Signed Impressions: Service Date/Time: Saturday, December 17, 2016 01:40 - CONCLUSION: Fracture of the midshaft of the humerus and mid shaft of the radius and ulna. Lewis Saldana MD Humerus X-Ray 12/17/16 Signed Impressions: Service Date/Time: Saturday, December 17, 2016 04:22 - CONCLUSION: Status post fracture fixation with large remaining soft tissue defect. Lewis Saldana MD Humerus X-Ray 12/17/16 Signed Impressions: Service Date/Time: Saturday, December 17, 2016 00:43 - CONCLUSION: Transverse humeral shaft fracture Lewis Saldana MD Foot X-Ray 12/17/16 Signed Impressions: Service Date/Time: Saturday, December 17, 2016 01:40 - CONCLUSION: Fractures of the first and fourth metatarsal necks Lewis Saldana MD Chest X-Ray 12/17/16 0000 Signed Impressions: Service Date/Time: Saturday, December 17, 2016 07:44 - CONCLUSION: Clear lungs. Gigi Read MD Chest X-Ray 12/17/16 0000 Signed Impressions: Service Date/Time: Saturday, December 17, 2016 00:43 - CONCLUSION: Normal examination except for the endotracheal tube is extending into the right bronchus. Lewis Saldana MD Ankle X-Ray 12/17/16 0000 Signed Impressions: Service Date/Time: Saturday, December 17, 2016 01:40 - CONCLUSION: Parasagittal fracture through the distal lateral tibial plafond with widening of the medial mortise. Lewis Saldana MD Objective Remarks Laying in bed, Mother at bedside Less distress, appears more comfortable today VSS RUE Long arm splint in place, VAC in place, mild swelling fingers, Limited sensation, Cannot actively extend fingers, can flex fingers 4/5, +nvi LUE Shoulder VAC in place, poorly attached - removed and cleaned, nurse instructed to reapply VAC; good granulation tissue, no purulence LLE Dressing/splint intact, mild swelling toes, wiggles toes but limited, sensation intact but limited, +nvi Assessment & Plan Problem List: (1) Open fracture of shaft of right humerus (2) Strain of triceps tendon (3) Fracture of ankle, left, closed (4) Closed fracture of shaft of right radius and ulna Assessment and Plan POD 6 1) Open reduction internal fixation right radius and ulna shaft fractures, open reduction internal fixation of left distal tibia, open reduction internal fixation left ankle syndesmosis, irrigation and debridement with complex wound closure left foot 20 cm in length. I&D with wound closure right humerus with DC of vac POD 7 1) Right humerus open reduction internal fixation using [employer] specialty distal humerus locking plate. 2) Primary repair of right triceps rupture. 3) Irrigation and debridement open fracture with curetting of bone and removal of small bone fragments. 4) Exploration of rupture radial nerve. 5) Placement of vaccum-assisted closure device. *pod#2 s/p I&D right upper arm, radial nerve repair with nerve allograft and conduit wrap per hand surgery -Patient and family aware that it takes months to a year to see radial nerve recovery and may not get return of nerve function and may require tendon transfers to right forearm and hand. -Weightbearing protocol and range of motion per orthopedics. Will follow as outpatient Pain management DVT prophylaxis - Lovenox Physical therapy - non weight bearing on right arm and left leg Do not change dressings - maintain splints Left shoulder VAC change today then as scheduled. Monitor Kyra Rodriguez Dec 24, 2016 08:55
[2016-12-24] MEDS: POVIDONE IODINE 10% OINT 30 GM TUBE TOPICAL SCH ×2 (09:00→20:08)
[2016-12-24] MEDS: SODIUM CHLORIDE 0.9% FLUSH 10 ML FLUSH IV FLUSH SCH ×2 (09:08→20:07)
[2016-12-24] MEDS: DIAZEPAM 2 MG TAB PO SCH ×2 (09:08→20:06)
[2016-12-24] MEDS: DOCUSATE SODIUM 50 MG/SENNA 8.6 MG TAB PO SCH ×2 (09:08→20:06)
[2016-12-24] MEDS: LACTULOSE SYRUP 20 GM/30 ML CUP PO SCH (09:09)
[2016-12-24] MEDS: ENOXAPARIN SODIUM 30 MG/0.3 ML SYRINGE SQ SCH ×2 (09:09→20:06)
[2016-12-24] MEDS: BACITRACIN TOP OINT 15 GM TUBE TOPICAL SCH ×4 (09:10→20:08)
[2016-12-24] MEDS: POLYETHYLENE GLYCOL 17 GM PKG PO SCH (09:11)
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
[2016-12-24 12:05] VITALS: BP 114/68; PULSE 96; RESP 18; TEMP 99.3; O2SAT 96
[2016-12-24 16:00] VITALS: BP 116/87; PULSE 105; RESP 18; TEMP 99.1; O2SAT 98
[2016-12-24] MEDS: MAGNESIUM HYDROXIDE SUSP 30 ML CUP PO SCH (20:07)
[2016-12-24] MEDS: FAMOTIDINE 20 MG TAB PO SCH (20:07)
[2016-12-24 20:20] VITALS: BP 111/78; PULSE 89; RESP 17; TEMP 99.8; O2SAT 98
[2016-12-24] MEDS: RESP: ALBUTEROL 2.5 MG/IPRATROPIUM 0.5 MG NEB (PRN) NEB (20:44)
[2016-12-25 00:17] VITALS: BP 121/77; PULSE 97; RESP 17; TEMP 98.8; O2SAT 100
[2016-12-25] MEDS: HYDROmorphone HCL 4 MG TAB PO PRN ×5 (00:22→21:05)
[2016-12-25] MEDS: GENTAMICIN INJ 100 MG in SODIUM CHLORIDE 0.9% INJ 100 ML IV SCH ×3 (04:29→22:53)
[2016-12-25] MEDS: LEVOTHYROXINE SODIUM 25 MCG TAB PO SCH (04:29)
[2016-12-25] MEDS: PREGABALIN 100 MG CAP PO SCH ×2 (04:29→11:07)
[2016-12-25 04:30] VITALS: BP 121/87; PULSE 88; RESP 17; TEMP 97.4; O2SAT 96
--- NOTE | 2016-12-25 06:44 | PD.ORT.PN ---
Subjective Subjective Remarks No new complaints. Objective Vitals Vital Signs Date Time Temp Pulse Resp B/P Pulse Ox O2 Delivery O2 Flow Rate FiO2 12/25/16 04:30 97.4 88 17 121/87 96 12/25/16 00:17 98.8 97 17 121/77 100 12/24/16 20:20 99.8 89 17 111/78 98 12/24/16 16:00 99.1 105 18 116/87 98 12/24/16 12:05 99.3 96 18 114/68 96 12/24/16 08:00 97.7 89 18 109/71 96 I/O 12/24/16 12/24/16 12/24/16 12/25/16 12/25/16 12/25/16 07:00 15:00 23:00 07:00 15:00 23:00 Intake Total 340 ml 1070 ml 480 ml Output Total 50 ml 0 ml Balance 340 ml 1070 ml 430 ml 0 ml Intake Oral 240 ml 960 ml 480 ml IV Total 100 ml 110 ml Drainage Total 50 ml 0 ml # Voids 2 2 1 # Bowel Movements 0 0 0 Result Diagram: 12/24/16 0453 12/24/16 0453 Imaging Last 24 hours Impressions Thoracic Spine CT 12/17/1652 Signed Impressions: Service Date/Time: Saturday, December 17, 2016 01:15 - CONCLUSION: Normal examination except for question of a hairline fracture of the right 11th rib. Lewis Saldana MD Pelvis X-Ray 12/17/1652 Signed Impressions: Service Date/Time: Saturday, December 17, 2016 00:43 - CONCLUSION: Unremarkable examination of the pelvis. Lewis Saldana MD Maxillofacial CT 12/17/1652 Signed Impressions: Service Date/Time: Saturday, December 17, 2016 01:04 - CONCLUSION: Soft tissue injury and debris in the left periorbital and frontal regions. No evidence of underlying fracture Lewis Saldana MD Lumbar Spine CT 12/17/1652 Signed Impressions: Service Date/Time: Saturday, December 17, 2016 01:15 - CONCLUSION: Normal examination. Lewis Saldana MD Head CT 12/17/1652 Signed Impressions: Service Date/Time: Saturday, December 17, 2016 01:04 - CONCLUSION: Intracranial exam is normal. Extensive soft tissue swelling and number of loose bodies in the subcutaneous fat. Lewis Saldana MD Chest X-Ray 12/17/1652 Signed Impressions: Service Date/Time: Saturday, December 17, 2016 00:43 - CONCLUSION: Normal examination except the patient is intubated with the tip in the endotracheal tube in the upper right bronchus. Left subclavian introducer sheath in good position Lewis Saldana MD Chest CT 12/17/1652 Signed Impressions: Service Date/Time: Saturday, December 17, 2016 01:15 - CONCLUSION: No definite evidence of infiltrate or pneumothorax. There is a small pneumomediastinum. ET tube is now in good position. Lewis Saldana MD Cervical Spine CT 12/17/1652 Signed Impressions: Service Date/Time: Saturday, December 17, 2016 01:04 - CONCLUSION: Normal examination. Lewis Saldana MD Abdomen/Pelvis CT 12/17/1652 Signed Impressions: Service Date/Time: Saturday, December 17, 2016 01:15 - CONCLUSION: 2 small hemangioma in the liver. Solid organs are otherwise unremarkable except for a right 11th rib fracture nondisplaced. Lewis Saldana MD Radius/Ulna X-Ray 12/17/16 Signed Impressions: Service Date/Time: Saturday, December 17, 2016 01:40 - CONCLUSION: Fracture of the midshaft of the humerus and mid shaft of the radius and ulna. Lewis Saldana MD Humerus X-Ray 12/17/16 Signed Impressions: Service Date/Time: Saturday, December 17, 2016 04:22 - CONCLUSION: Status post fracture fixation with large remaining soft tissue defect. Lewis Saldana MD Humerus X-Ray 12/17/16 Signed Impressions: Service Date/Time: Saturday, December 17, 2016 00:43 - CONCLUSION: Transverse humeral shaft fracture Lewis Saldana MD Foot X-Ray 12/17/16 Signed Impressions: Service Date/Time: Saturday, December 17, 2016 01:40 - CONCLUSION: Fractures of the first and fourth metatarsal necks Lewis Saldana MD Chest X-Ray 7/2/17 0000 Signed Impressions: Service Date/Time: Saturday, December 17, 2016 07:44 - CONCLUSION: Clear lungs. Gigi Read MD Chest X-Ray 12/17/16 0000 Signed Impressions: Service Date/Time: Saturday, December 17, 2016 00:43 - CONCLUSION: Normal examination except for the endotracheal tube is extending into the right bronchus. Lewis Saldana MD Ankle X-Ray 12/17/16 0000 Signed Impressions: Service Date/Time: Saturday, December 17, 2016 01:40 - CONCLUSION: Parasagittal fracture through the distal lateral tibial plafond with widening of the medial mortise. Lewis Saldana MD Objective Remarks Laying in bed, Mother at bedside Less distress, appears more comfortable today VSS RUE Long arm splint in place, mild swelling fingers, Limited sensation, Cannot actively extend fingers, can flex fingers 4/5, +nvi LUE Shoulder VAC in place, poorly attached - removed and cleaned, nurse instructed to reapply VAC; good granulation tissue, no purulence LLE Dressing/splint intact, mild swelling toes, wiggles toes but limited, sensation intact but limited, +nvi Assessment & Plan Problem List: (1) Open fracture of shaft of right humerus (2) Strain of triceps tendon (3) Fracture of ankle, left, closed (4) Closed fracture of shaft of right radius and ulna Assessment and Plan POD 7 1) Open reduction internal fixation right radius and ulna shaft fractures, open reduction internal fixation of left distal tibia, open reduction internal fixation left ankle syndesmosis, irrigation and debridement with complex wound closure left foot 20 cm in length. I&D with wound closure right humerus with DC of vac POD 8 1) Right humerus open reduction internal fixation using [employer] specialty distal humerus locking plate. 2) Primary repair of right triceps rupture. 3) Irrigation and debridement open fracture with curetting of bone and removal of small bone fragments. 4) Exploration of rupture radial nerve. 5) Placement of vaccum-assisted closure device. *pod#3 s/p I&D right upper arm, radial nerve repair with nerve allograft and conduit wrap per hand surgery -Patient and family aware that it takes months to a year to see radial nerve recovery and may not get return of nerve function and may require tendon transfers to right forearm and hand. -Weightbearing protocol and range of motion per orthopedics. Will follow as outpatient Pain management DVT prophylaxis - Lovenox Physical therapy - non weight bearing on right arm and left leg Do not change dressings - maintain splints Left shoulder VAC change today then as scheduled. Monitor Armaan Gonzales Jr. Dec 25, 2016 06:44
[2016-12-25 08:00] VITALS: BP 116/74; PULSE 88; RESP 18; TEMP 97.5; O2SAT 95
[2016-12-25] MEDS ORDERED: MAGNESIUM CITRATE SOLN 300 ML BTL PO ONE (08:15)
[2016-12-25] MEDS ORDERED: SOD PHOSPHATE/SOD BIPHOSPHATE (ADULT) ENEMA 133ML RECTAL ONE (08:15)
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
[2016-12-25] MEDS: DIAZEPAM 2 MG TAB PO SCH ×2 (09:00→21:12)
[2016-12-25] MEDS: POVIDONE IODINE 10% OINT 30 GM TUBE TOPICAL SCH ×2 (09:00→21:00)
[2016-12-25] MEDS: SODIUM CHLORIDE 0.9% FLUSH 10 ML FLUSH IV FLUSH SCH ×2 (09:00→21:00)
[2016-12-25] MEDS: BACITRACIN TOP OINT 15 GM TUBE TOPICAL SCH ×4 (09:00→21:13)
[2016-12-25] MEDS: ENOXAPARIN SODIUM 30 MG/0.3 ML SYRINGE SQ SCH ×2 (11:00→21:06)
[2016-12-25] MEDS: LACTULOSE SYRUP 20 GM/30 ML CUP PO SCH (11:00)
[2016-12-25] MEDS: DOCUSATE SODIUM 50 MG/SENNA 8.6 MG TAB PO SCH ×2 (11:01→21:05)
[2016-12-25] MEDS: POLYETHYLENE GLYCOL 17 GM PKG PO SCH (11:01)
[2016-12-25 12:00] VITALS: BP 134/84; PULSE 89; RESP 18; TEMP 98.8; O2SAT 95
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
[2016-12-25] MEDS: ACETAMINOPHEN 1000 MG/100 ML VIAL IV SCH ×2 (13:05→21:06)
--- NOTE | 2016-12-25 15:38 | PD.PLAS.PN ---
Subjective Remarks Patient is 4 days status post repair of wound of face and flap closure to wound of forehead on 12/21/16. Objective Vital Signs Date Time Temp Pulse Resp B/P Pulse Ox O2 Delivery O2 Flow Rate FiO2 12/25/16 12:00 98.8 89 18 134/84 95 12/25/16 08:00 97.5 88 18 116/74 95 12/25/16 04:30 97.4 88 17 121/87 96 12/25/16 00:17 98.8 97 17 121/77 100 12/24/16 20:20 99.8 89 17 111/78 98 12/24/16 16:00 99.1 105 18 116/87 98 I/O 12/24/16 12/24/16 12/24/16 12/25/16 12/25/16 12/25/16 07:00 15:00 23:00 07:00 15:00 23:00 Intake Total 340 ml 1070 ml 480 ml 240 ml Output Total 50 ml 0 ml Balance 340 ml 1070 ml 430 ml 240 ml Intake Oral 240 ml 960 ml 480 ml 240 ml IV Total 100 ml 110 ml Drainage Total 50 ml 0 ml # Voids 2 2 1 3 # Bowel Movements 0 0 0 0 Result Diagram: 12/24/16 0453 12/24/16 0453 Exam Findings Wounds of the face are healing well. There is no evidence of infection. Sutures are in place. Assessment and Plan Diagnosis: (1) Wounds, open, face, multiple Assessment and Plan Wounds are healing well. Continue with application of bacitracin and single layer Xeroform. Discussed with RN. The exam, history, and the medical decision-making described in the above note were completed with the assistance of the mid-level provider. I reviewed and agree with the findings presented. I attest that I had a [id number] encounter with the patient on the same day, and personally performed and documented my assessment and findings in the medical record. Lawanda Cole M.D. Jess Duarte Dec 25, 2016 15:38
[2016-12-25 16:00] VITALS: BP 121/75; PULSE 102; RESP 18; TEMP 99.7; O2SAT 94
[2016-12-25] MEDS: NYSTAT/DIPHENHY/LIDO MOUTHWASH (Adult) 120ML SWISH-SPIT SCH ×2 (18:00→21:00)
[2016-12-25 19:50] VITALS: BP 133/79; PULSE 98; RESP 16; TEMP 98.6; O2SAT 99
[2016-12-25] MEDS: MAGNESIUM HYDROXIDE SUSP 30 ML CUP PO SCH (21:05)
[2016-12-25] MEDS: FAMOTIDINE 20 MG TAB PO SCH (21:05)
[2016-12-25] MEDS: PREGABALIN 75 MG CAP PO SCH (22:19)
[2016-12-26] MEDS: HYDROmorphone HCL 4 MG TAB PO PRN ×6 (00:05→23:27)
[2016-12-26 00:10] VITALS: BP 127/77; PULSE 98; RESP 16; TEMP 98.7; O2SAT 96
[2016-12-26] MEDS: ACETAMINOPHEN 1000 MG/100 ML VIAL IV SCH ×2 (01:52→09:23)
[2016-12-26] MEDS: GENTAMICIN INJ 100 MG in SODIUM CHLORIDE 0.9% INJ 100 ML IV SCH ×3 (06:00→23:29)
[2016-12-26] MEDS: LEVOTHYROXINE SODIUM 25 MCG TAB PO SCH (06:17)
[2016-12-26] MEDS: PREGABALIN 75 MG CAP PO SCH ×3 (06:17→20:43)
[2016-12-26 08:00] VITALS: BP 121/85; PULSE 79; RESP 21; TEMP 97.8; O2SAT 93
[2016-12-26] MEDS: SODIUM CHLORIDE 0.9% FLUSH 10 ML FLUSH IV FLUSH SCH ×2 (09:00→20:52)
[2016-12-26] MEDS: BACITRACIN TOP OINT 15 GM TUBE TOPICAL SCH ×4 (09:00→20:49)
[2016-12-26] MEDS: POVIDONE IODINE 10% OINT 30 GM TUBE TOPICAL SCH (09:00)
[2016-12-26] MEDS: NYSTAT/DIPHENHY/LIDO MOUTHWASH (Adult) 120ML SWISH-SPIT SCH ×4 (09:00→20:47)
[2016-12-26] MEDS: DIAZEPAM 2 MG TAB PO SCH ×2 (09:24→20:44)
[2016-12-26] MEDS: DOCUSATE SODIUM 50 MG/SENNA 8.6 MG TAB PO SCH ×2 (09:24→20:44)
[2016-12-26] MEDS: LACTULOSE SYRUP 20 GM/30 ML CUP PO SCH (09:24)
[2016-12-26] MEDS: POLYETHYLENE GLYCOL 17 GM PKG PO SCH (09:24)
[2016-12-26] MEDS: ENOXAPARIN SODIUM 30 MG/0.3 ML SYRINGE SQ SCH ×2 (09:25→20:43)
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
[2016-12-26 12:39] VITALS: BP 120/81; PULSE 87; RESP 18; TEMP 97.8; O2SAT 99
[2016-12-26 16:00] VITALS: BP 125/82; PULSE 105; RESP 18; TEMP 99.7; O2SAT 99
[2016-12-26 20:00] VITALS: BP 121/76; PULSE 97; RESP 18; TEMP 99.1; O2SAT 98
[2016-12-26 20:24] VITALS: O2SAT 99
[2016-12-26] MEDS: MAGNESIUM HYDROXIDE SUSP 30 ML CUP PO SCH (20:44)
[2016-12-26] MEDS: traZODone HCL 100 MG TAB PO SCH (20:44)
[2016-12-26] MEDS: FAMOTIDINE 20 MG TAB PO SCH (20:44)
[2016-12-27] VITALS: BP 119/79; PULSE 102; RESP 18; TEMP 98; O2SAT 96
[2016-12-27] MEDS: PREGABALIN 75 MG CAP PO SCH ×3 (05:54→22:14)
[2016-12-27] MEDS: HYDROmorphone HCL 4 MG TAB PO PRN ×6 (05:54→23:18)
[2016-12-27] MEDS: GENTAMICIN INJ 100 MG in SODIUM CHLORIDE 0.9% INJ 100 ML IV SCH ×3 (05:54→22:15)
[2016-12-27] MEDS: LEVOTHYROXINE SODIUM 25 MCG TAB PO SCH (05:54)
[2016-12-27 07:44] VITALS: BP 122/72; PULSE 103; RESP 17; TEMP 98.3; O2SAT 96
[2016-12-27 08:25] LABS: AUTOMATED NEUTROPHIL # 10.4 TH/MM3 (1.8-7.7); BASOPHIL # 0.1 TH/MM3 (0-0.2); BASOPHIL % 0.5 % (0.0-2.0); EOSINOPHIL # 0.2 TH/MM3 (0-0.4); EOSINOPHIL % 1.3 % (0.0-4.0); HEMATOCRIT 27.2 % (35.0-46.0); LYMPH % 16.9 % (9.0-44.0); LYMPHOCYTE # 2.3 TH/MM3 (1.0-4.8); MEAN CELL VOLUME 85.6 FL (80.0-100.0); MEAN CORPUSCULAR HEMOGLOBIN 28.2 PG (27.0-34.0); MEAN CORPUSCULAR HGB CONC 32.9 % (32.0-36.0); MONO % 3.8 % (0.0-8.0); NEUT % 77.5 % (16.0-70.0); PLATELET COUNT 444 TH/MM3 (150-450); RED BLOOD COUNT 3.17 MIL/MM3 (4.00-5.30); WHITE BLOOD COUNT 13.5 TH/MM3 (4.0-11.0)
[2016-12-27 08:30] LABS: HEMO FLAGS AUTO DIFF
[2016-12-27 08:52] LABS: ANION GAP 10 MEQ/L (5-15); AST (GOT) 20 U/L (15-37); BICARBONATE 26.1 MEQ/L (21.0-32.0); BLOOD UREA NITROGEN 10 MG/DL (7-18); CHLORIDE 100 MEQ/L (98-107); GLOMERULAR FILTRATION RATE 87 ML/MIN (>89); POTASSIUM 4.1 MEQ/L (3.5-5.1); SODIUM (NA) 136 MEQ/L (136-145)
[2016-12-27 08:56] LABS: ALKALINE PHOSPHATASE 61 U/L (45-117); ALT (GPT) 23 U/L (10-53); TOTAL BILIRUBIN ADULT 0.3 MG/DL (0.2-1.0)
[2016-12-27] MEDS: SODIUM CHLORIDE 0.9% FLUSH 10 ML FLUSH IV FLUSH SCH ×2 (09:00→20:00)
[2016-12-27 09:19] LABS: BANDS 4 % (0-6); METAMYELOCYTES 4 % (0-1); NEUTROPHIL # MANUAL DIFF 11.1 TH/MM3 (1.8-7.7); POLYS (SEG NEUTROPHILS) 74 % (16-70); WBC DIFF SAMPLE 100
[2016-12-27 09:20] LABS: OVALOCYTES 1+ (NORMAL); PLATELET ESTIMATE SMEAR HIGH (NORMAL); PLATELET MORPHOLOGY NORMAL (NORMAL); SCAN/DIFF FINAL DIFF MANUAL
[2016-12-27] MEDS: DIAZEPAM 2 MG TAB PO SCH ×2 (10:07→19:58)
[2016-12-27] MEDS: DOCUSATE SODIUM 50 MG/SENNA 8.6 MG TAB PO SCH ×2 (10:07→19:58)
[2016-12-27] MEDS: NYSTAT/DIPHENHY/LIDO MOUTHWASH (Adult) 120ML SWISH-SPIT SCH ×4 (10:08→19:59)
[2016-12-27] MEDS: ENOXAPARIN SODIUM 30 MG/0.3 ML SYRINGE SQ SCH ×2 (10:09→19:59)
[2016-12-27] MEDS: POLYETHYLENE GLYCOL 17 GM PKG PO SCH (10:09)
[2016-12-27] MEDS: LACTULOSE SYRUP 20 GM/30 ML CUP PO SCH (10:13)
[2016-12-27] MEDS: BACITRACIN TOP OINT 15 GM TUBE TOPICAL SCH ×4 (10:14→19:59)
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
[2016-12-27 12:00] VITALS: BP_SYST 132; BP_SYST 135; BP_DIAS 70; BP_DIAS 86; PULSE 106; PULSE 98; RESP 17; RESP 19; TEMP 96.5; TEMP 97.4; O2SAT 92; O2SAT 98
[2016-12-27 15:48] VITALS: BP 134/80; PULSE 106; RESP 17; TEMP 96.4; O2SAT 96
[2016-12-27] MEDS: MAGNESIUM HYDROXIDE SUSP 30 ML CUP PO SCH (19:58)
[2016-12-27] MEDS: FAMOTIDINE 20 MG TAB PO SCH (19:58)
[2016-12-27] MEDS: traZODone HCL 100 MG TAB PO SCH (19:58)
[2016-12-27 20:00] VITALS: BP 112/75; PULSE 93; RESP 15; TEMP 97.8; O2SAT 96
[2016-12-28] VITALS (7 sets, daily range): BP systolic 111–137; BP diastolic 67–86; PULSE 92–98; RESP 16–19; TEMP 96.6–99.1; O2SAT 94–99
[2016-12-28] MEDS: GENTAMICIN INJ 100 MG in SODIUM CHLORIDE 0.9% INJ 100 ML IV SCH ×3 (04:01→21:09)
[2016-12-28] MEDS: HYDROmorphone HCL 4 MG TAB PO PRN ×7 (04:01→23:50)
[2016-12-28] MEDS: PREGABALIN 75 MG CAP PO SCH ×3 (05:35→21:08)
[2016-12-28] MEDS: LEVOTHYROXINE SODIUM 25 MCG TAB PO SCH (05:35)
[2016-12-28] MEDS ORDERED: OXYC-395 PO (06:33)
[2016-12-28] MEDS: POLYETHYLENE GLYCOL 17 GM PKG PO SCH (07:42)
[2016-12-28] MEDS: ENOXAPARIN SODIUM 30 MG/0.3 ML SYRINGE SQ SCH ×2 (07:42→21:09)
[2016-12-28] MEDS: NYSTAT/DIPHENHY/LIDO MOUTHWASH (Adult) 120ML SWISH-SPIT SCH ×4 (07:43→21:10)
[2016-12-28] MEDS: DIAZEPAM 2 MG TAB PO SCH ×2 (07:43→21:08)
[2016-12-28] MEDS: LACTULOSE SYRUP 20 GM/30 ML CUP PO SCH (07:44)
[2016-12-28] MEDS: DOCUSATE SODIUM 50 MG/SENNA 8.6 MG TAB PO SCH ×2 (07:44→21:08)
[2016-12-28] MEDS: SODIUM CHLORIDE 0.9% FLUSH 10 ML FLUSH IV FLUSH SCH ×2 (07:49→21:00)
[2016-12-28] MEDS ORDERED: TUB TRANSFER BO1 MIS (08:24)
[2016-12-28] MEDS ORDERED: WALKER/FOLDING1 MIS (08:24)
[2016-12-28] MEDS: BACITRACIN TOP OINT 15 GM TUBE TOPICAL SCH ×4 (09:00→21:09)
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
[2016-12-28] MEDS: MORPHINE SULFATE 4 MG/ML INJ IV PUSH PRN (15:45)
--- NOTE | 2016-12-28 15:56 | PD.PLAS.PN ---
Subjective Remarks Patient is 1 week status post repair of facial lacerations. She has no acute complaints. Objective Vital Signs Date Time Temp Pulse Resp B/P Pulse Ox O2 Delivery O2 Flow Rate FiO2 12/28/16 15:26 98.7 97 17 130/76 98 12/28/16 11:41 97.1 97 17 137/86 97 12/28/16 07:31 98.5 92 17 131/74 97 12/28/16 04:00 97.2 94 18 114/68 94 12/28/16 00:00 96.6 98 19 111/67 96 12/27/16 20:00 97.8 93 15 112/75 96 I/O 12/27/16 12/27/16 12/27/16 12/28/16 12/28/16 12/28/16 07:00 15:00 23:00 07:00 15:00 23:00 Intake Total 659 ml 550 ml 780 ml 480 ml 600 ml Output Total 25 ml 10 ml Balance 659 ml 550 ml 755 ml 470 ml 600 ml Intake Oral 480 ml 550 ml 780 ml 480 ml 600 ml IV Total 179 ml Drainage Total 25 ml 10 ml # Voids 1 2 1 0 2 # Bowel Movements 0 0 0 Result Diagram: 12/27/16 0753 12/27/16 0753 Exam Findings Wounds of the face are healing well. There is significant crusting to the cheeks and forehead. There is no evidence of infection. Sutures are in place. Assessment and Plan Assessment and Plan Wounds are healing well. Sutures are removed without complication. The exam, history, and the medical decision-making described in the above note were completed with the assistance of the mid-level provider. I reviewed and agree with the findings presented. I attest that I had a [id number] encounter with the patient on the same day, and personally performed and documented my assessment and findings in the medical record. Lawanda Cole M.D. Jess Duarte Dec 28, 2016 15:56
--- NOTE | 2016-12-28 16:56 | PD.WCN.NOT ---
Wound Consult Description: L Shoulder Laceration Communicated with: NGOZI marc and Alethea ANN. Recommendation: Recommend to change dressing daily to L shoulder apply saline moistened gauze pad fluffed and lightly packed in wound bed. Please apply Xeroform gauze dressing in a single layer to partial thickness skin loss to periwound.Please cover with dry 4x4 gauze pads. Secure dressings with ABD pad and tape. Please apply skin prep before applying adhesives to skin. Additional Information: Patient seen on for evaluation of L shoulder laceration with wound Vac dressing in place. Removed wound VAC dressing in place with assistance of Alethea ANN, NGOZI marc, and freelance writer to reveal wound. Wound to L shoulder presents with ~20% red granulation tissue and ~80% pale red muscle tissue. Wound measures ~5cm x ~4cm x ~0.4 cm.Wound is now to shallow for wound VAC. Wound has minimal sero-sanguinous drainage in wound VAC canister. Wound noted with minimal active sanguinous drainage that is without odor. Periwound is noted with partial thickness skin loss that is completely surrounding wound bed. Periwound partial thickness skin loss measures ~9cm x ~5 cm x ~<0.1 cm. Periwound partial thickness skin loss is noted with minimal yellow exudate and sanguinous drainage. Cleansed wound with normal saline and applied Xeroform dressing just over periwound partial thickness skin loss and loosely packed wound with saline moistened 4x4 fluffed gauze. Covered wound with dry 2 dry 4x4 gauze pads. Secured with ABD pad and Paper tape. Serina Shaikh [facility] Dec 28, 2016 16:56 Serina Shaikh [facility] Dec 28, 2016 16:56
[2016-12-28] MEDS: MAGNESIUM HYDROXIDE SUSP 30 ML CUP PO SCH (21:00)
[2016-12-28] MEDS: traZODone HCL 100 MG TAB PO SCH (21:07)
[2016-12-28] MEDS: FAMOTIDINE 20 MG TAB PO SCH (21:08)
--- NOTE | 2016-12-28 23:38 | PD.ORT.PN ---
Subjective Subjective Remarks Patient reports nerve pain right arm improved with Lyrica. Patient has been compliant with OT. Objective Vitals Vital Signs Date Time Temp Pulse Resp B/P Pulse Ox O2 Delivery O2 Flow Rate FiO2 12/28/16 19:00 99.1 97 16 115/74 99 12/28/16 15:26 98.7 97 17 130/76 98 12/28/16 11:41 97.1 97 17 137/86 97 12/28/16 07:31 98.5 92 17 131/74 97 12/28/16 04:00 97.2 94 18 114/68 94 12/28/16 00:00 96.6 98 19 111/67 96 I/O 12/27/16 12/27/16 12/27/16 12/28/16 12/28/16 12/28/16 06:59 14:59 22:59 06:59 14:59 22:59 Intake Total 659 ml 550 ml 780 ml 480 ml 600 ml 480 ml Output Total 25 ml 10 ml Balance 659 ml 550 ml 755 ml 470 ml 600 ml 480 ml Intake Oral 480 ml 550 ml 780 ml 480 ml 600 ml 480 ml IV Total 179 ml Drainage Total 25 ml 10 ml # Voids 1 2 1 0 2 2 # Bowel Movements 0 0 0 0 Result Diagram: 12/27/16 0753 12/27/16 075 Imaging Last 24 hours Impressions Thoracic Spine CT 12/17/1652 Signed Impressions: Service Date/Time: Saturday, December 17, 2016 01:15 - CONCLUSION: Normal examination except for question of a hairline fracture of the right 11th rib. Lewis Saldana MD Pelvis X-Ray 12/17/1652 Signed Impressions: Service Date/Time: Saturday, December 17, 2016 00:43 - CONCLUSION: Unremarkable examination of the pelvis. Lewis Saldana MD Maxillofacial CT 12/17/1652 Signed Impressions: Service Date/Time: Saturday, December 17, 2016 01:04 - CONCLUSION: Soft tissue injury and debris in the left periorbital and frontal regions. No evidence of underlying fracture Lewis Saldana MD Lumbar Spine CT 12/17/1652 Signed Impressions: Service Date/Time: Saturday, December 17, 2016 01:15 - CONCLUSION: Normal examination. Lewis Saldana MD Head CT 12/17/16 0053 Signed Impressions: Service Date/Time: Saturday, December 17, 2016 01:04 - CONCLUSION: Intracranial exam is normal. Extensive soft tissue swelling and number of loose bodies in the subcutaneous fat. Lewis Saldana MD Chest X-Ray 12/17/16 0053 Signed Impressions: Service Date/Time: Saturday, December 17, 2016 00:43 - CONCLUSION: Normal examination except the patient is intubated with the tip in the endotracheal tube in the upper right bronchus. Left subclavian introducer sheath in good position Lewis Saldana MD Chest CT 12/17/16 0053 Signed Impressions: Service Date/Time: Saturday, December 17, 2016 01:15 - CONCLUSION: No definite evidence of infiltrate or pneumothorax. There is a small pneumomediastinum. ET tube is now in good position. Lewis Saldana MD Cervical Spine CT 12/17/1652 Signed Impressions: Service Date/Time: Saturday, December 17, 2016 01:04 - CONCLUSION: Normal examination. Lewis Saldana MD Abdomen/Pelvis CT 12/17/16 0053 Signed Impressions: Service Date/Time: Saturday, December 17, 2016 01:15 - CONCLUSION: 2 small hemangioma in the liver. Solid organs are otherwise unremarkable except for a right 11th rib fracture nondisplaced. Lewis Saldana MD Radius/Ulna X-Ray 12/17/16 0000 Signed Impressions: Service Date/Time: Saturday, December 17, 2016 01:40 - CONCLUSION: Fracture of the midshaft of the humerus and mid shaft of the radius and ulna. Lewis Saldana MD Humerus X-Ray 12/17/16 0000 Signed Impressions: Service Date/Time: Saturday, December 17, 2016 04:22 - CONCLUSION: Status post fracture fixation with large remaining soft tissue defect. Lewis Saldana MD Humerus X-Ray 12/17/16 0000 Signed Impressions: Service Date/Time: Saturday, December 17, 2016 00:43 - CONCLUSION: Transverse humeral shaft fracture Lewis Saldana MD Foot X-Ray 12/17/16 0000 Signed Impressions: Service Date/Time: Saturday, December 17, 2016 01:40 - CONCLUSION: Fractures of the first and fourth metatarsal necks Lewis Saldana MD Chest X-Ray 12/17/16 0000 Signed Impressions: Service Date/Time: Saturday, December 17, 2016 07:44 - CONCLUSION: Clear lungs. Gigi Read MD Chest X-Ray 12/17/16 0000 Signed Impressions: Service Date/Time: Saturday, December 17, 2016 00:43 - CONCLUSION: Normal examination except for the endotracheal tube is extending into the right bronchus. Lewis Saldana MD Ankle X-Ray 12/17/16 0000 Signed Impressions: Service Date/Time: Saturday, December 17, 2016 01:40 - CONCLUSION: Parasagittal fracture through the distal lateral tibial plafond with widening of the medial mortise. Lewis Saldana MD Objective Remarks Alert and oriented. Long arm splint in place. Xeroform and cling in place abrasions right hand. Retained passive motion right wrist extension and finger extension. Sensation intact median nerve distribution. Decreased sensation ulnar distribution. Absent sensation radial nerve distribution. 4/5 finger flexors, 0/5 finger extensors and wrist extensors, 2/5 hand intrinsics, 2+ radial pulse Assessment & Plan Assessment and Plan pod#6 s/p I&D right upper arm, radial nerve repair with nerve allograft and conduit wrap -Patient and family aware that it takes months to a year to see radial nerve recovery and may not get return of nerve function and may require tendon transfers to right forearm and hand. -Continue and/or increase Lyrica -OT to continue passive ROM right wrist and finger extensors. Will consider wrist splint once arm splint changed by orthopedics -Recommend 2 week followup in office once discharged Pauline Back MD Dec 28, 2016 23:37
[2016-12-29] MEDS: HYDROmorphone HCL 4 MG TAB PO PRN ×7 (02:53→21:42)
[2016-12-29] MEDS: PREGABALIN 75 MG CAP PO SCH ×3 (06:28→21:43)
[2016-12-29] MEDS: LEVOTHYROXINE SODIUM 25 MCG TAB PO SCH (06:28)
[2016-12-29] MEDS: GENTAMICIN INJ 100 MG in SODIUM CHLORIDE 0.9% INJ 100 ML IV SCH ×3 (06:28→21:43)
--- NOTE | 2016-12-29 06:31 | PD.ORT.PN ---
Subjective Subjective Remarks s/p ORIF right BBFA - POD 11 s/p ORIF Left Ankle - POD 11 s/p ORIF Right Distal Humerus - POD 12 s/p right arm radial nerve repair by Dr Back - POD 7 -resting comfortably. reports pain in right arm with attempted movement Objective Vitals Vital Signs Date Time Temp Pulse Resp B/P Pulse Ox O2 Delivery O2 Flow Rate FiO2 12/28/16 22:00 98.8 95 17 121/74 99 12/28/16 19:00 99.1 97 16 115/74 99 12/28/16 15:26 98.7 97 17 130/76 98 12/28/16 11:41 97.1 97 17 137/86 97 12/28/16 07:31 98.5 92 17 131/74 97 I/O 12/28/16 12/28/16 12/28/16 12/29/16 12/29/16 12/29/16 07:00 15:00 23:00 07:00 15:00 23:00 Intake Total 480 ml 600 ml 480 ml 480 ml Output Total 10 ml Balance 470 ml 600 ml 480 ml 480 ml Intake Oral 480 ml 600 ml 480 ml 480 ml Drainage Total 10 ml # Voids 0 2 2 3 # Bowel Movements 0 0 0 Result Diagram: 12/27/16 0753 12/27/16 0753 Imaging Last 24 hours Impressions Thoracic Spine CT 12/17/1652 Signed Impressions: Service Date/Time: Saturday, December 17, 2016 01:15 - CONCLUSION: Normal examination except for question of a hairline fracture of the right 11th rib. Lewis Saldana MD Pelvis X-Ray 12/17/1652 Signed Impressions: Service Date/Time: Saturday, December 17, 2016 00:43 - CONCLUSION: Unremarkable examination of the pelvis. Lewis Saldana MD Maxillofacial CT 12/17/1652 Signed Impressions: Service Date/Time: Saturday, December 17, 2016 01:04 - CONCLUSION: Soft tissue injury and debris in the left periorbital and frontal regions. No evidence of underlying fracture Lewis Saldana MD Lumbar Spine CT 12/17/1652 Signed Impressions: Service Date/Time: Saturday, December 17, 2016 01:15 - CONCLUSION: Normal examination. Lewis Saldana MD Head CT 12/17/16 0053 Signed Impressions: Service Date/Time: Saturday, December 17, 2016 01:04 - CONCLUSION: Intracranial exam is normal. Extensive soft tissue swelling and number of loose bodies in the subcutaneous fat. Lewis Saldana MD Chest X-Ray 12/17/163 Signed Impressions: Service Date/Time: Saturday, December 17, 2016 00:43 - CONCLUSION: Normal examination except the patient is intubated with the tip in the endotracheal tube in the upper right bronchus. Left subclavian introducer sheath in good position Lewis Saldana MD Chest CT 12/17/16 0053 Signed Impressions: Service Date/Time: Saturday, December 17, 2016 01:15 - CONCLUSION: No definite evidence of infiltrate or pneumothorax. There is a small pneumomediastinum. ET tube is now in good position. Lewis Saldana MD Cervical Spine CT 12/17/1652 Signed Impressions: Service Date/Time: Saturday, December 17, 2016 01:04 - CONCLUSION: Normal examination. Lewis Saldana MD Abdomen/Pelvis CT 12/17/16 0053 Signed Impressions: Service Date/Time: Saturday, December 17, 2016 01:15 - CONCLUSION: 2 small hemangioma in the liver. Solid organs are otherwise unremarkable except for a right 11th rib fracture nondisplaced. Lewis Saldana MD Radius/Ulna X-Ray 12/17/16 Signed Impressions: Service Date/Time: Saturday, December 17, 2016 01:40 - CONCLUSION: Fracture of the midshaft of the humerus and mid shaft of the radius and ulna. Lewis Saldana MD Humerus X-Ray 12/17/16 Signed Impressions: Service Date/Time: Saturday, December 17, 2016 04:22 - CONCLUSION: Status post fracture fixation with large remaining soft tissue defect. Lewis Saldana MD Humerus X-Ray 12/17/16 Signed Impressions: Service Date/Time: Saturday, December 17, 2016 00:43 - CONCLUSION: Transverse humeral shaft fracture Lewis Saldana MD Foot X-Ray 12/17/16 Signed Impressions: Service Date/Time: Saturday, December 17, 2016 01:40 - CONCLUSION: Fractures of the first and fourth metatarsal necks Lewis Saldana MD Chest X-Ray 12/17/16 0000 Signed Impressions: Service Date/Time: Saturday, December 17, 2016 07:44 - CONCLUSION: Clear lungs. Gigi Read MD Chest X-Ray 12/17/16 0000 Signed Impressions: Service Date/Time: Saturday, December 17, 2016 00:43 - CONCLUSION: Normal examination except for the endotracheal tube is extending into the right bronchus. Lewis Saldana MD Ankle X-Ray 12/17/16 0000 Signed Impressions: Service Date/Time: Saturday, December 17, 2016 01:40 - CONCLUSION: Parasagittal fracture through the distal lateral tibial plafond with widening of the medial mortise. Lewis Saldana MD Objective Remarks RUE: +long arm splint. Intact sensation to median/ulnar nerve distribution. Inability to extend fingers. +cap refill LLE: +short leg splint. intact. NVI Assessment & Plan Assessment and Plan 1) Right Distal Humerus Fx s/p ORIF by Dr Quiñones - POD 12 2) Right Radial/Ulnar Shaft Fx s/p ORIF by Dr Rogel - POD 11 3) Left Ankle Fx s/p ORIF by Dr Rogel - POD 11 4) Right Arm Radial Nerve Repair by Dr Back - POD 7 5) s/p closure of multiple facial lacerations by Dr Cole - POD 8 -NWB RUE/LLE -maintain splint on right arm and left ankle at all times -will order xrays at 2 weeks post op if patient still in hospital -ortho surgeries complete -ortho cleared for discharge -f/u with Juan F or LIZANDRO at 2 weeks post op if discharged Rafael Perales Dec 29, 2016 06:31
[2016-12-29 07:22] VITALS: BP 130/71; PULSE 86; RESP 17; TEMP 97.8; O2SAT 96
[2016-12-29] MEDS: ENOXAPARIN SODIUM 30 MG/0.3 ML SYRINGE SQ SCH ×2 (08:01→20:07)
[2016-12-29] MEDS: NYSTAT/DIPHENHY/LIDO MOUTHWASH (Adult) 120ML SWISH-SPIT SCH ×4 (08:01→20:07)
[2016-12-29] MEDS: POLYETHYLENE GLYCOL 17 GM PKG PO SCH (08:01)
[2016-12-29] MEDS: DOCUSATE SODIUM 50 MG/SENNA 8.6 MG TAB PO SCH ×2 (08:02→20:07)
[2016-12-29] MEDS: DIAZEPAM 2 MG TAB PO SCH ×2 (08:02→20:07)
[2016-12-29] MEDS: BACITRACIN TOP OINT 15 GM TUBE TOPICAL SCH ×4 (08:08→20:08)
[2016-12-29] MEDS ORDERED: BISACODYL 10 MG SUPP RECTAL ONE (08:15)
[2016-12-29] MEDS ORDERED: BISACODYL EC 5 MG TABEC PO ONE (08:15)
[2016-12-29] MEDS: LACTULOSE SYRUP 20 GM/30 ML CUP PO SCH (09:00)
[2016-12-29] MEDS: SODIUM CHLORIDE 0.9% FLUSH 10 ML FLUSH IV FLUSH SCH ×2 (09:00→20:07)
--- NOTE | 2016-12-29 09:57 | PD.PLAS.PN ---
Subjective Remarks Patient is 8 days status post repair of facial lacerations. Patient has no new complaints. Objective Vital Signs Date Time Temp Pulse Resp B/P Pulse Ox O2 Delivery O2 Flow Rate FiO2 12/29/16 07:22 97.8 86 17 130/71 96 12/28/16 22:00 98.8 95 17 121/74 99 12/28/16 19:00 99.1 97 16 115/74 99 12/28/16 15:26 98.7 97 17 130/76 98 12/28/16 11:41 97.1 97 17 137/86 97 I/O 12/28/16 12/28/16 12/28/16 12/29/16 12/29/16 12/29/16 07:00 15:00 23:00 07:00 15:00 23:00 Intake Total 480 ml 600 ml 480 ml 480 ml Output Total 10 ml Balance 470 ml 600 ml 480 ml 480 ml Intake Oral 480 ml 600 ml 480 ml 480 ml Drainage Total 10 ml # Voids 0 2 2 3 # Bowel Movements 0 0 0 Result Diagram: 12/27/16 0753 12/27/16 0753 Exam Findings Wounds of the face are healing well. The wound on the nose is covered with xeroform. On exam, there is loss of skin to the majority of the nose. There is no evidence of infection. Assessment and Plan Assessment and Plan Discussed daily wound care with RN. Dressing is applied to the nose including hydrogel, voltac, and xeroform. The patient and the RN are advised that this should be kept in place until reevaluation on Sunday. Jess Duarte Dec 29, 2016 09:57
[2016-12-29] MEDS: RESP: ALBUTEROL 2.5 MG/IPRATROPIUM 0.5 MG NEB (PRN) NEB (11:21)
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
[2016-12-29 12:00] VITALS: BP 128/76; PULSE 104; RESP 17; TEMP 96.3; O2SAT 100
[2016-12-29 15:28] VITALS: BP 131/74; PULSE 110; RESP 18; TEMP 98.8; O2SAT 97
[2016-12-29 19:00] VITALS: BP 119/80; PULSE 103; RESP 19; TEMP 98.7; O2SAT 98
[2016-12-29] MEDS: MAGNESIUM HYDROXIDE SUSP 30 ML CUP PO SCH (20:07)
[2016-12-29] MEDS: FAMOTIDINE 20 MG TAB PO SCH (20:07)
[2016-12-29] MEDS: traZODone HCL 100 MG TAB PO SCH (20:07)
[2016-12-30] VITALS: BP 127/74; PULSE 102; RESP 17; TEMP 99.6; O2SAT 100
[2016-12-30] MEDS: HYDROmorphone HCL 4 MG TAB PO PRN ×7 (00:50→23:25)
[2016-12-30] MEDS: LEVOTHYROXINE SODIUM 25 MCG TAB PO SCH (05:09)
[2016-12-30] MEDS: PREGABALIN 75 MG CAP PO SCH ×3 (05:09→22:57)
[2016-12-30] MEDS: GENTAMICIN INJ 100 MG in SODIUM CHLORIDE 0.9% INJ 100 ML IV SCH ×3 (05:09→22:58)
[2016-12-30 06:53] LABS: HEMATOCRIT 25.1 % (35.0-46.0); MEAN CELL VOLUME 87.2 FL (80.0-100.0); MEAN CORPUSCULAR HEMOGLOBIN 28.5 PG (27.0-34.0); MEAN CORPUSCULAR HGB CONC 32.7 % (32.0-36.0); PLATELET COUNT 388 TH/MM3 (150-450); RED BLOOD COUNT 2.87 MIL/MM3 (4.00-5.30); RED CELL DISTRIBUTION WIDTH 16.4 % (11.6-17.2); REVIEW FLAG FINAL; WHITE BLOOD COUNT 11.6 TH/MM3 (4.0-11.0)
[2016-12-30 08:00] VITALS: BP 104/73; PULSE 92; RESP 18; TEMP 97.2; O2SAT 96
[2016-12-30] MEDS: DOCUSATE SODIUM 50 MG/SENNA 8.6 MG TAB PO SCH ×2 (08:44→20:14)
[2016-12-30] MEDS: SODIUM CHLORIDE 0.9% FLUSH 10 ML FLUSH IV FLUSH SCH ×2 (08:44→20:15)
[2016-12-30] MEDS: DIAZEPAM 2 MG TAB PO SCH ×2 (08:44→20:14)
[2016-12-30] MEDS: ENOXAPARIN SODIUM 30 MG/0.3 ML SYRINGE SQ SCH ×2 (08:44→20:14)
[2016-12-30] MEDS: NYSTAT/DIPHENHY/LIDO MOUTHWASH (Adult) 120ML SWISH-SPIT SCH ×4 (08:45→20:14)
[2016-12-30] MEDS: BACITRACIN TOP OINT 15 GM TUBE TOPICAL SCH ×4 (08:45→20:18)
[2016-12-30] MEDS: POLYETHYLENE GLYCOL 17 GM PKG PO SCH (08:45)
[2016-12-30] MEDS: LACTULOSE SYRUP 20 GM/30 ML CUP PO SCH (08:45)
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
[2016-12-30 12:00] VITALS: BP 115/79; PULSE 99; RESP 18; TEMP 98.8; O2SAT 96
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
[2016-12-30 16:00] VITALS: BP 109/79; PULSE 102; RESP 18; TEMP 99.2; O2SAT 98
[2016-12-30 20:00] VITALS: BP 113/77; PULSE 97; RESP 18; TEMP 98.9; O2SAT 98
[2016-12-30] MEDS: traZODone HCL 100 MG TAB PO SCH (20:14)
[2016-12-30] MEDS: FAMOTIDINE 20 MG TAB PO SCH (20:14)
[2016-12-30] MEDS: MAGNESIUM HYDROXIDE SUSP 30 ML CUP PO SCH (20:14)
[2016-12-31] VITALS: BP 126/72; PULSE 101; RESP 18; TEMP 98; O2SAT 99
[2016-12-31] MEDS: HYDROmorphone HCL 4 MG TAB PO PRN ×6 (04:08→23:41)
[2016-12-31] MEDS: GENTAMICIN INJ 100 MG in SODIUM CHLORIDE 0.9% INJ 100 ML IV SCH ×3 (06:15→20:39)
[2016-12-31] MEDS: PREGABALIN 75 MG CAP PO SCH ×3 (06:15→20:30)
[2016-12-31] MEDS: LEVOTHYROXINE SODIUM 25 MCG TAB PO SCH (06:15)
[2016-12-31 08:00] VITALS: BP 112/77; PULSE 84; RESP 18; TEMP 97.8; O2SAT 96
[2016-12-31] MEDS: DIAZEPAM 2 MG TAB PO SCH ×2 (08:45→20:29)
[2016-12-31] MEDS: LACTULOSE SYRUP 20 GM/30 ML CUP PO SCH (08:47)
[2016-12-31] MEDS: POLYETHYLENE GLYCOL 17 GM PKG PO SCH (08:47)
[2016-12-31] MEDS: NYSTAT/DIPHENHY/LIDO MOUTHWASH (Adult) 120ML SWISH-SPIT SCH ×4 (08:47→20:30)
[2016-12-31] MEDS: DOCUSATE SODIUM 50 MG/SENNA 8.6 MG TAB PO SCH ×2 (08:47→20:30)
[2016-12-31] MEDS: ENOXAPARIN SODIUM 30 MG/0.3 ML SYRINGE SQ SCH ×2 (08:51→20:30)
[2016-12-31] MEDS: SODIUM CHLORIDE 0.9% FLUSH 10 ML FLUSH IV FLUSH SCH ×2 (08:53→20:30)
[2016-12-31] MEDS: BACITRACIN TOP OINT 15 GM TUBE TOPICAL SCH ×4 (09:00→20:42)
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
[2016-12-31 12:00] VITALS: BP 108/71; PULSE 89; RESP 18; TEMP 97.4; O2SAT 95
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
[2016-12-31 16:00] VITALS: BP 106/72; PULSE 99; RESP 18; TEMP 98.1; O2SAT 100
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
--- NOTE | 2016-12-31 17:21 | RADRPT ---
EXAM DATE/TIME: 12/31/2016 16:47 [facility] COMPARISON: No previous studies available for comparison. INDICATIONS : [place] [facility] [place] [facility] [place] MEDICAL HISTORY : None. SURGICAL HISTORY : None. ENCOUNTER: Initial ACUITY: 2 days PAIN SCORE: 0/10 LOCATION: Right humerus FINDINGS: Side plate and multiple screws traverse the humerus with excellent anatomical alignment of the fractu re fragments. CONCLUSION: Intact postsurgical changes for technique. Teodoro Wu MD on December 31, 2016 at 17:19 Board Certified Radiologist. This report was verified electronically.
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
[2016-12-31 20:00] VITALS: BP 119/81; PULSE 102; RESP 18; TEMP 97.9; O2SAT 100
[2016-12-31] MEDS: FAMOTIDINE 20 MG TAB PO SCH (20:29)
[2016-12-31] MEDS: traZODone HCL 100 MG TAB PO SCH (20:29)
[2016-12-31] MEDS: MAGNESIUM HYDROXIDE SUSP 30 ML CUP PO SCH (20:30)
[2017-01-01] VITALS: BP 114/74; PULSE 95; RESP 16; TEMP 98.2; O2SAT 96
[2017-01-01] MEDS: HYDROmorphone HCL 4 MG TAB PO PRN ×6 (04:16→23:49)
[2017-01-01] MEDS: PREGABALIN 75 MG CAP PO SCH ×3 (06:05→20:07)
[2017-01-01] MEDS: LEVOTHYROXINE SODIUM 25 MCG TAB PO SCH (06:05)
[2017-01-01] MEDS: GENTAMICIN INJ 100 MG in SODIUM CHLORIDE 0.9% INJ 100 ML IV SCH ×3 (06:05→20:06)
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
[2017-01-01 08:00] VITALS: BP 121/74; PULSE 88; RESP 19; TEMP 96.7; O2SAT 94
[2017-01-01] MEDS: DIAZEPAM 2 MG TAB PO SCH ×2 (08:25→20:07)
[2017-01-01] MEDS: DOCUSATE SODIUM 50 MG/SENNA 8.6 MG TAB PO SCH ×2 (08:25→20:07)
[2017-01-01] MEDS: ENOXAPARIN SODIUM 30 MG/0.3 ML SYRINGE SQ SCH ×2 (08:26→20:06)
[2017-01-01] MEDS: NYSTAT/DIPHENHY/LIDO MOUTHWASH (Adult) 120ML SWISH-SPIT SCH ×4 (08:27→20:06)
[2017-01-01] MEDS: BACITRACIN TOP OINT 15 GM TUBE TOPICAL SCH ×4 (09:00→20:08)
[2017-01-01] MEDS: POLYETHYLENE GLYCOL 17 GM PKG PO SCH (09:00)
[2017-01-01] MEDS: SODIUM CHLORIDE 0.9% FLUSH 10 ML FLUSH IV FLUSH SCH ×2 (09:00→20:08)
[2017-01-01] MEDS: LACTULOSE SYRUP 20 GM/30 ML CUP PO SCH (09:00)
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
[2017-01-01 11:41] VITALS: BP 136/75; PULSE 99; RESP 19; TEMP 96.3; O2SAT 97
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
[2017-01-01] MEDS ORDERED: ASPI325T PO (14:24)
[2017-01-01 15:44] VITALS: BP 135/79; PULSE 115; RESP 19; TEMP 97.2; O2SAT 97
[2017-01-01 20:00] VITALS: BP 105/71; PULSE 98; RESP 16; TEMP 98.8; O2SAT 94
[2017-01-01] MEDS: traZODone HCL 100 MG TAB PO SCH (20:07)
[2017-01-01] MEDS: MAGNESIUM HYDROXIDE SUSP 30 ML CUP PO SCH (20:07)
[2017-01-01] MEDS: FAMOTIDINE 20 MG TAB PO SCH (20:07)
[2017-01-02 00:45] VITALS: BP 114/72; PULSE 104; RESP 16; TEMP 99.5; O2SAT 93
[2017-01-02] MEDS: HYDROmorphone HCL 4 MG TAB PO PRN ×3 (05:27→14:17)
[2017-01-02] MEDS: LEVOTHYROXINE SODIUM 25 MCG TAB PO SCH (05:27)
[2017-01-02] MEDS: PREGABALIN 75 MG CAP PO SCH ×2 (05:27→14:18)
[2017-01-02] MEDS: GENTAMICIN INJ 100 MG in SODIUM CHLORIDE 0.9% INJ 100 ML IV SCH ×2 (05:27→14:00)
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
[2017-01-02 08:00] VITALS: BP 115/79; PULSE 84; RESP 16; TEMP 96.9; O2SAT 97
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
[2017-01-02] MEDS: BACITRACIN TOP OINT 15 GM TUBE TOPICAL SCH ×2 (09:00)
[2017-01-02] MEDS: POLYETHYLENE GLYCOL 17 GM PKG PO SCH (09:00)
[2017-01-02] MEDS: NYSTAT/DIPHENHY/LIDO MOUTHWASH (Adult) 120ML SWISH-SPIT SCH ×2 (09:00→13:00)
[2017-01-02] MEDS: DIAZEPAM 2 MG TAB PO SCH (10:04)
[2017-01-02] MEDS: DOCUSATE SODIUM 50 MG/SENNA 8.6 MG TAB PO SCH (10:05)
[2017-01-02] MEDS: LACTULOSE SYRUP 20 GM/30 ML CUP PO SCH (10:06)
[2017-01-02] MEDS: ENOXAPARIN SODIUM 30 MG/0.3 ML SYRINGE SQ SCH (10:06)
[2017-01-02] MEDS: SODIUM CHLORIDE 0.9% FLUSH 10 ML FLUSH IV FLUSH SCH (10:07)
[2017-01-02 12:00] VITALS: BP 110/76; PULSE 85; RESP 16; TEMP 98.1; O2SAT 99
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
[2017-01-02 16:00] VITALS: BP 113/74; PULSE 128; RESP 16; TEMP 98; O2SAT 95
== END 2017-01-02 17:09 | disposition home or self-care (01) | DRG 957 ==
LOC: NEPI 00:31 → NEDA 02:09 → MERGE 02:09 → EDBD 02:09 → N03A 05:59 → N06B 12-20 22:00
PROVIDERS: ADMIT Surgery; ATTEND Surgery
PROC: 0KQ70ZZ Repair Right Upper Arm Muscle, Open Approach (ICD-10-PCS; 2016-12-17)
PROC: 30233N1 Transfusion of Nonautologous Red Blood Cells into Peripheral Vein, Percutaneous Approach (ICD-10-PCS; 2016-12-17)
PROC: 0HQNXZZ Repair Left Foot Skin, External Approach (ICD-10-PCS; 2016-12-17)
PROC: 5A1945Z Respiratory Ventilation, 24-96 Consecutive Hours (ICD-10-PCS; 2016-12-17)
PROC: 30233K1 Transfusion of Nonautologous Frozen Plasma into Peripheral Vein, Percutaneous Approach (ICD-10-PCS; 2016-12-17)
PROC: 0PSF04Z Reposition Right Humeral Shaft with Internal Fixation Device, Open Approach (ICD-10-PCS; principal; 2016-12-17 02:15)
PROC: 0JDR0ZZ Extraction of Left Foot Subcutaneous Tissue and Fascia, Open Approach (ICD-10-PCS; 2016-12-18)
PROC: 0SSG04Z Reposition Left Ankle Joint with Internal Fixation Device, Open Approach (ICD-10-PCS; 2016-12-18)
PROC: 0PSH04Z Reposition Right Radius with Internal Fixation Device, Open Approach (ICD-10-PCS; 2016-12-18)
PROC: 0PSK04Z Reposition Right Ulna with Internal Fixation Device, Open Approach (ICD-10-PCS; 2016-12-18)
PROC: 0QSH04Z Reposition Left Tibia with Internal Fixation Device, Open Approach (ICD-10-PCS; 2016-12-18)
PROC: 0HDCXZZ Extraction of Left Upper Arm Skin, External Approach (ICD-10-PCS; 2016-12-18)
PROC: 0WQ20ZZ Repair Face, Open Approach (ICD-10-PCS; 2016-12-21)
PROC: 0HB1XZZ Excision of Face Skin, External Approach (ICD-10-PCS; 2016-12-21)
PROC: 0HQ1XZZ Repair Face Skin, External Approach (ICD-10-PCS; 2016-12-21)
PROC: 08QRXZZ Repair Left Lower Eyelid, External Approach (ICD-10-PCS; 2016-12-21)
PROC: 01B60ZZ Excision of Radial Nerve, Open Approach (ICD-10-PCS; 2016-12-22)
PROC: 0JDG0ZZ Extraction of Right Lower Arm Subcutaneous Tissue and Fascia, Open Approach (ICD-10-PCS; 2016-12-22)
PROC: 01Q60ZZ Repair Radial Nerve, Open Approach (ICD-10-PCS; 2016-12-22)
DX: S42.301B Unspecified fracture of shaft of humerus, right arm, initial encounter for open fracture (principal); R57.1 Hypovolemic shock; S27.322A Contusion of lung, bilateral, initial encounter; S48.9 Traumatic amputation of shoulder and upper arm, level unspecified; J96.90 Respiratory failure, unspecified, unspecified whether with hypoxia or hypercapnia; Z99.11 Dependence on respirator [ventilator] status; T79.7XXA Traumatic subcutaneous emphysema, initial encounter; S82.201A Unspecified fracture of shaft of right tibia, initial encounter for closed fracture; S22.31XA Fracture of one rib, right side, initial encounter for closed fracture; S52.301A Unspecified fracture of shaft of right radius, initial encounter for closed fracture; S52.201A Unspecified fracture of shaft of right ulna, initial encounter for closed fracture; S06.0X9A Concussion with loss of consciousness of unspecified duration, initial encounter; S91.312A Laceration without foreign body, left foot, initial encounter; S42.401A Unspecified fracture of lower end of right humerus, initial encounter for closed fracture; S46.311A Strain of muscle, fascia and tendon of triceps, right arm, initial encounter; S54.21XA Injury of radial nerve at forearm level, right arm, initial encounter; S01.411A Laceration without foreign body of right cheek and temporomandibular area, initial encounter; S82.302A Unspecified fracture of lower end of left tibia, initial encounter for closed fracture; S82.832A Other fracture of upper and lower end of left fibula, initial encounter for closed fracture; S92.342A Displaced fracture of fourth metatarsal bone, left foot, initial encounter for closed fracture; S92.312A Displaced fracture of first metatarsal bone, left foot, initial encounter for closed fracture; V27.5XXA Motorcycle passenger injured in collision with fixed or stationary object in traffic accident, initial encounter; Y92.488 Other paved roadways as the place of occurrence of the external cause; Y93.89 Activity, other specified; Y99.9 Unspecified external cause status; F12.90 Cannabis use, unspecified, uncomplicated; F41.9 Anxiety disorder, unspecified; F43.23 Adjustment disorder with mixed anxiety and depressed mood; G43.909 Migraine, unspecified, not intractable, without status migrainosus; E07.9 Disorder of thyroid, unspecified; S00.01XA Abrasion of scalp, initial encounter; S01.112A Laceration without foreign body of left eyelid and periocular area, initial encounter; S01.81XA Laceration without foreign body of other part of head, initial encounter; E87.6 Hypokalemia; F43.10 Post-traumatic stress disorder, unspecified; F02.80 Dementia in other diseases classified elsewhere, unspecified severity, without behavioral disturbance, psychotic disturbance, mood disturbance, and anxiety
CPT/HCPCS: 36430; 36556; 36600; 36620; 70450; 70486; 71010; 71260; 72125; 72128; 72131; 72170; 73060; 73090; 73600; 73620; 74177; 76000; 76937; 80048; 80053; 82435; 82565; 82805; 82947; 83735; 84100; 84132; 84155; 84295; 84520; 85007; 85025; 85027; 85384; 85610; 85730; 86850; 86900; 86901; 86920; 86927; 87641; 90471; 94002; 94003; 94150; 94640; 94664; 96365; 96374; 96375; 96376; 99291; C1713; C9113; C9352; C9353; G0390; J0131; J0610; J0690; J1100; J1580; J1644; J1650; J1885; J2150; J2250; J2270; J2405; J2710; J3010; J3370; J3480; J7030; J7050; J7120; P9016; P9017; Q9967